=== PATIENT | male | born 1950 | race Caucasian/White ===

== ENCOUNTER 2020-02-29 10:22 | Outpatient (CLI) | payer MEDICARE, SELFPAY ==
--- NOTE | ~2020-02-29 | XR_ITS ---
XR lumbar spine min 4V DATE: 02/29/2020 10:43 INDICATION: Low back pain, pain radiating down leg TECHNIQUE: AP, lateral, bilateral oblique views, coned lateral lumbosacral view COMPARISON: None FINDINGS: There is mild levoscoliosis of the lumbar spine. There is moderate degenerative disease throughout the lumbar and lumbosacral spine. There is associat ed mild retrolisthesis at L4-5. No fracture or bone destruction or anterolisthesis is evident. The lumbar pedicles are intact. No par s intra-articular is defect is evident. The sacroiliac joints are intact. IMPRESSION: Mild levoscoliosis and multilevel moderate degenerative disc disease Reviewed, dictated and finalized at location A. IMPRESSION: Mild levoscoliosis and multilevel moderate degenerative disc diseas e
== END 2020-02-29 10:23 | disposition home or self-care (01) ==
PROVIDERS: PCP Nurse Practitioner; Visit Provider Nurse Practitioner
DX: M54.5 Low back pain (principal); M41.86 Other forms of scoliosis, lumbar region; M51.36 Other intervertebral disc degeneration, lumbar region
CPT/HCPCS: 72110

== ENCOUNTER 2021-04-21 09:09 | Outpatient (CLI) | payer MEDICARE, SELFPAY ==
[2021-04-21 09:47] LABS: Cholesterol 228 mg/dL (0-200); Triglycerides 68 mg/dL (<150)
[2021-04-21 09:51] LABS: LDL Cholesterol Direct 55 mg/dL
[2021-04-21 10:12] LABS: Prostate Specific Antigen 0.3 ng/mL (< OR = 4.0)
[2021-04-21 10:18] LABS: Vitamin D 25 Hydroxy 29.2 ng/mL
[2021-04-21 10:33] LABS: HDL Direct 151 mg/dL
== END 2021-04-21 09:10 | disposition home or self-care (01) ==
LOC: ANHLAB 09:14
PROVIDERS: PCP Nurse Practitioner; Visit Provider Nurse Practitioner
DX: E53.8 Deficiency of other specified B group vitamins (principal); E55.9 Vitamin D deficiency, unspecified; Z13.6 Encounter for screening for cardiovascular disorders; Z12.5 Encounter for screening for malignant neoplasm of prostate
CPT/HCPCS: 36415; 80061; 82306; 82607; 84153; G0103

== ENCOUNTER → 2022-04-14 08:29 | Outpatient (CLI) | payer MEDICARE, SELFPAY ==
--- NOTE | ~2022-04-14 | MR_ITS ---
EXAMINATION: MR brain/brain stem wo con DATE: 04/14/2022 09:02 INDICATION: Numbness and tingling. History of esophageal and prostate cancer. TECHNIQUE: Magnetic resonance imaging (MRI) of the brain and brainstem was performed without intraven ous contrast. Sequences included sagittal and axial T1-weighted SE, axial diffusion-weighted FS SE, a xial T2*-weighted GRE, axial T2-weighted FLAIR Propeller, and axial T2-weighted Propeller. Apparent d iffusion coefficient (ADC) maps were created. COMPARISON: No prior studies for comparison. . FINDINGS: There is a heterogeneous area of abnormal signal intensity in the left parietal lobe with m ild surrounding vasogenic edema, suspicious for underlying mass. There is associated diffusion restri ction. No evidence for associated hemorrhage. No ventriculomegaly or midline shift. No ventriculomega ly or midline shift. Midline sagittal images demonstrate a normal corpus callosum and craniovertebral junction. No abnormality of the sella turcica is seen. Mild generalized atrophy. There are scattered mild periventricular and subcortical white matter changes, most likely related to small vessel ische nathanael disease (microangiopathy). Structures of the posterior fossa including 7/8th cranial nerve comple x are unremarkable. Paranasal sinuses are unremarkable. Orbits are symmetric without disconjugate gaz e. IMPRESSION: 1. Probable small ill-defined left parietal lobe mass near the vertex with mild surrounding vasogenic edema. Recommend follow-up examination with contrast enhancement to assess the extent of enhancement and to exclude other subtly enhancing lesions of the brain. Given the history of malignancy, metasta tic disease should be considered. Reviewed, dictated and finalized at location A. IMPRESSION: 1. Probable small ill-defined left parietal lobe mass near the vertex with mild surrounding vasogenic edema. Recommend follow-up examination with contrast enh ancement to assess the extent of enhancement and to exclude other subtly enhanc ing lesions of the brain. Given the history of malignancy, metastatic disease s hould be considered.
== END ==
PROVIDERS: PCP Family Medicine; Visit Provider Nurse Practitioner
DX: R25.9 Unspecified abnormal involuntary movements (principal); R20.2 Paresthesia of skin; R93.0 Abnormal findings on diagnostic imaging of skull and head, not elsewhere classified
CPT/HCPCS: 70551

== ENCOUNTER → 2022-04-27 12:09 | Outpatient (CLI) | payer MEDICARE, SELFPAY ==
--- NOTE | ~2022-04-27 | MR_ITS ---
EXAMINATION: MR brain/brain stem w con DATE: 04/27/2022 12:46 INDICATION: Mass in left parietal lobe. TECHNIQUE: Magnetic resonance imaging (MRI) of the brain and brainstem was performed with 18 mL Multi Arie intravenous contrast. COMPARISON: brain MRI 04/14/2022 FINDINGS: There is a 2.0 cm enhancing mass in left frontoparietal region. The ventricles are normal i n size. The mastoid air cells are normal. The paranasal sinuses are clear. There are likely changes o f ocular lens replacement surgeries. IMPRESSION: 1. 2.0 cm enhancing mass in left frontoparietal region, consistent with metastatic disease. Reviewed, dictated and finalized at location A. IMPRESSION: 1. 2.0 cm enhancing mass in left frontoparietal region, consistent with metasta tic disease.
[2022-04-27 12:30] LABS: Estimated Glomerular Filt Rate > 60
== END ==
PROVIDERS: PCP Family Medicine; Visit Provider Nurse Practitioner
DX: G93.89 Other specified disorders of brain (principal)
CPT/HCPCS: 70552; A9577

== ENCOUNTER 2022-07-05 08:10 | Outpatient (CLI) | payer MEDICARE, SELFPAY ==
[2022-07-05 21:42] LABS: Prostate Specific Antigen 0.3 ng/mL (< OR = 4.0)
[2022-07-06 12:42] LABS: Cholesterol 196 mg/dL (0-200); HDL Direct 109 mg/dL; Triglycerides 59 mg/dL (<150)
[2022-07-06 12:50] LABS: LDL Cholesterol Direct 70 mg/dL
== END 2022-07-05 08:11 | disposition home or self-care (01) ==
LOC: ANHGOSHLAB 08:13
PROVIDERS: PCP Family Medicine; Visit Provider Nurse Practitioner
DX: Z12.5 Encounter for screening for malignant neoplasm of prostate (principal); Z13.220 Encounter for screening for lipoid disorders
CPT/HCPCS: 36415; 80061; 84153; G0103

== ENCOUNTER 2022-12-06 11:44 | Outpatient (CLI) | payer MEDICARE, SELFPAY ==
--- NOTE | ~2022-12-06 | XR_ITS ---
XR chest 2V 12/06/2022 12:07 Indication: Shortness of breath. Covid. Procedure: 2 view chest Comparison: No prior studies for comparison. Findings: There is patchy bilateral airspace disease, most confluent in the right upper lobe, consist ent with pneumonia. Small pleural effusions. Central venous catheter tip in the SVC. There are surgic al changes of the mediastinum. No pneumothorax. Impression: 1: Extensive patchy bilateral airspace disease, compatible with pneumonia. 2: Small pleural effusions. Reviewed, dictated and finalized at location B. ING ALLEY ATTENDANT Impression: 1: Extensive patchy bilateral airspace disease, compatible with pneumonia. 2: Small pleural effusions.
== END 2022-12-06 11:45 | disposition home or self-care (01) ==
PROVIDERS: PCP Family Medicine; Visit Provider Nurse Practitioner
DX: U07.1 COVID-19 (principal); R06.02 Shortness of breath; R91.8 Other nonspecific abnormal finding of lung field; J90 Pleural effusion, not elsewhere classified
CPT/HCPCS: 71046

== ENCOUNTER 2022-12-13 10:19 | Inpatient (IN) | payer MEDICARE, SELFPAY ==
[2022-12-13] VITALS (12 sets, daily range): BP systolic 104–127; BP diastolic 67–77; PULSE 71–97; RESP 13–20; TEMP 36.3–37.7; O2SAT 89–99; BMI 25.7
--- NOTE | ~2022-12-13 | XR_ITS ---
XR chest 1V portable 12/13/2022 11:01 Indication: Shortness of breath. Esophageal carcinoma. Procedure: AP portable chest Comparison: 12/06/2022 Findings: Portacatheter tip in the SVC. Stable cardiomediastinal silhouette. There is bilateral patch y airspace disease, consistent with pneumonia, improved on the right and worsened on the left. No sig nificant effusion. No pneumothorax. No acute osseous abnormality. Impression: 1: Patchy bilateral airspace disease, compatible with pneumonia. Reviewed, dictated and finalized at location B. SCREENER Impression: 1: Patchy bilateral airspace disease, compatible with pneumonia.
--- NOTE | ~2022-12-13 | CT_ITS ---
Clinical Indication: Shortness of breath, hypoxia CT Scan of the Chest with Contrast: Technique: Contiguous sections were acquired throughout the chest after intravenous administration of 100 cc of Omnipaque 350. Dose reduction technique was used on this scan by utilizing automated expos ure control and iterative reconstruction technique. The dose-length product (DLP) was 351.31 mGy-cm. COMPARISON: 06/19/2015 Findings: There is right paratracheal and left paratracheal lymphadenopathy, largest node along the right parat tonja region measuring 3.7 x 3.3 cm in size. Additional probable mildly enlarged AP window lymph no de present.. There is no filling defect in the pulmonary arterial tree to suggest pulmonary embolus. There is no evidence of aortic dissection or aneurysm. No pericardial effusion. Findings suggestive o f prior esophagectomy and partial gastric pull-through. Minimal bilateral pleural effusions are present. There is a probable irregular mass lesion at the right hilar region, extending predominantly into the central right upper lobe, but also probably into the central, superior right middle lobe. There is e xtension into the right hilum/mediastinum, as well as endobronchial extension into the bronchus inter medius and right upper lobe bronchus. Mass overall probably measures approximately 5.3 x 3.8 x 3.7 cm in extent, though precise delineation of the borders the mass is difficult. There is encasement and marked narrowing of the right upper pulmonary artery. There is extensive patchy consolidation throughout the remainder of the lungs are otherwise, worst in the left lower lobe and lingula. There is also suggestion of several scattered subcentimeter pulmona ry nodules, predominantly in the right upper lobe. Images through the upper abdomen reveal no abnormalities. Impression: No evidence of pulmonary embolus, aortic dissection, or aortic aneurysm. Probable 5.3 x 3.8 x 3.7 cm irregular mass extending from the central right upper lobe and to the rig ht hilum and superior, central right middle lobe, highly suspicious for neoplastic lesion, most likel y bronchogenic carcinoma. There is associated endobronchial extension into the bronchus intermedius a nd right upper lobe bronchus, as well as encasement and marked narrowing of the right upper lobar pul monary artery.. Metastatic mediastinal lymphadenopathy, as detailed above. Extensive patchy consolidation throughout both lungs otherwise, left lung worse than right, compatibl e with multifocal extensive pneumonia. Questionable subcentimeter nodules, particularly in the right upper lobe. Small pulmonary metastases cannot be excluded. Minimal bilateral pleural effusions. Findings to suggest prior esophagectomy and gastric pull-through surgery. Correlate with surgical his tory. Reviewed, dictated and finalized at [facility]. S LEAD Impression: No evidence of pulmonary embolus, aortic dissection, or aortic aneurysm. Probable 5.3 x 3.8 x 3.7 cm irregular mass extending from the central right upp er lobe and to the right hilum and superior, central right middle lobe, highly suspicious for neoplastic lesion, most likely bronchogenic carcinoma. There is associated endobronchial extension into the bronchus intermedius and right uppe r lobe bronchus, as well as encasement and marked narrowing of the right upper lobar pulmonary artery.. Metastatic mediastinal lymphadenopathy, as detailed above. Extensive patchy consolidation throughout both lungs otherwise, left lung worse than right, compatible with multifocal extensive pneumonia. Questionable subcentimeter nodules, particularly in the right upper lobe. Small pulmonary metastases cannot be excl
--- NOTE | ~2022-12-13 | US_ITS ---
EXAMINATION: US venous doppler [facility] DATE: 12/13/2022 12:03 INDICATION: Lower limb edema. TECHNIQUE: Grayscale ultrasound images without and with compression and Doppler ultrasound images of the bilateral lower extremity veins were obtained. COMPARISON: None. FINDINGS: The visualized portions of right common femoral vein, profunda (deep) femoral vein, femoral vein, pop liteal vein, peroneal veins, posterior tibial veins, and greater saphenous vein outflow are patent. The visualized portions of left common femoral vein, profunda femoral vein, femoral vein, popliteal v ein, peroneal veins, posterior tibial veins, and greater saphenous vein outflow are patent. IMPRESSION: 1. No deep venous thrombosis. Reviewed, dictated and finalized at location A. OW WORKER
--- NOTE | 2022-12-13 10:32 | ECG_ITS ---
Measurements Intervals [place] Rate: 79 P: 17 MN: 164 QRS: -37 QRSD: 88 T: 19 QT: 379 QTc: 436 Interpretive Statements SINUS RHYTHM LEFT AXIS DEVIATION RSR (QR) IN V1/V2 BORDERLINE ECG NO PREVIOUS ECG AVAILABLE FOR COMPARISON Electronically Signed On 12-13-2022 14:37:19 [employer]UN by Trell Dobbins M.D.
--- NOTE | 2022-12-13 10:48 | ED.SOB ---
HPI - SOB/Dyspnea General Chief Complaint: Shortness of Breath/Dyspnea <Denae Glynn PA-C - Last Filed: 12/13/22 16:13> Stated Complaint: sob, pneumonia <Denae Glynn PA-C - Last Filed: 12/13/22 16:13> Time Seen by Provider: 12/13/22 10:40 <Denae Glynn PA-C - Last Filed: 12/13/22 16:13> Source: patient <KATHRYN Umaña Last Filed: 12/13/22 16:13> Mode of arrival: ambulatory <Denae Glynn PA-C - Last Filed: 12/13/22 16:13> Limitations: no limitations <Denae Glynn PA-C - Last Filed: 12/13/22 16:13> History of Present Illness HPI Narrative: This is a 72-year-old male that presents to the emergency department for worsening shortness of breath noted over the weekend. Reports he tested positive for COVID 2 weeks ago yesterday. He was started on an inhaler, and an antibiotic. Reports after couple of days he did have some improvement in his symptoms. He started to note worsening again last weekend. He has had fevers, cough, and wheezing. Also reports lower extremity edema. Denies chest pain. <Denae Glynn PA-C - Last Filed: 12/13/22 16:13> Related Data Home Medications: Home Medications Medication Instructions Recorded Confirmed cholecalciferol (vitamin D3) 25 25 mcg PO DAILY 01/14/21 12/13/22 mcg (1,000 unit) capsule apixaban 5 mg tablet (Eliquis) 5 mg PO BID 11/29/22 12/13/22 levetiracetam 500 mg tablet 1,000 mg PO Q12H 11/29/22 12/13/22 (Keppra) mecobalamin (vitamin B12) 1,000 2,000 mcg PO DAILY 11/29/22 12/13/22 mcg chewable tablet pantoprazole 40 mg tablet,delayed 40 mg PO DAILY 11/29/22 12/13/22 release ramelteon 8 mg tablet (Rozerem) 8 mg PO QHS 11/29/22 12/13/22 sertraline 50 mg tablet (Zoloft) 50 mg PO QHS 11/29/22 12/13/22 tiotropium bromide 2.5 2 puff inhalation DAILY 11/29/22 12/13/22 mcg/actuation mist for inhalation (Spiriva Respimat) trazodone 100 mg tablet 100 mg PO QHS 11/29/22 12/13/22 vitamins A,C,X-wzht-[id number] 2,148 1 tablet PO ONCE 11/29/22 12/13/22 mcg-113 mg-45 mg-17.4 mg tablet <Denae Glynn PA-C - Last Filed: 12/13/22 16:13> Allergies/Adverse Reactions: Allergies Allergy/AdvReac Type Severity Reaction Status Date / Time No Known Allergies Allergy Unknown Verified 12/13/22 10:38 <Denae Glynn PA-C - Last Filed: 12/13/22 16:13> Review of Systems Review of Systems: CONSTITUTIONAL: Reports fever ENT: Reports rhinorrhea, congestion CARDIOVASCULAR: Reports edema. Denies chest pain RESPIRATORY: Reports cough and dyspnea. <Denae Glynn PA-C - Last Filed: 12/13/22 16:13> All systems reviewed & are unremarkable except as noted in HPI and below <Denae Glynn PA-C - Last Filed: 12/13/22 16:13> [facility] Past Medical History Medical History: Medical History Brain cancer (~2021) Esophageal cancer (~2018) History of prostate cancer Other and unspecified hyperlipidemia Peripheral polyneuropathy <Denae Glynn PA-C - Last Filed: 12/13/22 16:13> Surgical History Surgical History: Surgical History History of esophagectomy (~10/2015) S/P eye surgery (~02/2022) <Denae Glynn PA-C - Last Filed: 12/13/22 16:13> Family History Family History: Family History Father Family history of arthritis Malignant neoplasm of prostate Family history of congestive heart failure Mother Family history of arthritis Family history of malignant neoplasm of breast in first degree relative <Denae Glynn PA-C - Last Filed: 12/13/22 16:13> Social History Social History: Social History Smoking packs per day: 1.5 Smoking cigarettes per day: 30.0 Years smoked: 30 Smoking pack-years: 45.00 Smoking status: Former smoker Tobacco type: cigarettes
[2022-12-13 11:04] LABS: Basophils Absolute Auto 0.1 K/mm3 (0.0-0.1); Basophils Percent Auto 0.9 % (0.2-1.2); Eosinophils Percent Auto 0.2 % (0-4.4); Hematocrit 35.2 % (42.0-52.0); Hemoglobin 11.8 g/dL (14.0-18.0); Immature Granulocyte Absolute 0.25 K/mm3 (0.00-0.031); Immature Granulocyte Percent A 2.5 % (0-0.5); Lymphocytes Absolute Auto 0.78 K/mm3 (0.9-3.2); Lymphocytes Percent Auto 7.8 % (18.3-44.2); Mean Corpuscular HGB Conc 33.5 g/dl (32-36); Mean Corpuscular Hemoglobin 30.8 pg (26-34); Mean Corpuscular Volume 91.9 fl (80-100); Mean Platelet Volume 8.3 fl (7.4-10.4); Monocytes Percent Auto 19.7 % (2.6-8.5); Neutrophils Absolute Auto 6.9 K/mm3 (1.3-6.7); Neutrophils Percent Auto 68.9 % (45.5-73.1); Platelet Count Result 570 k/mm3 (150-375); Red Blood Count 3.83 M/mm3 (4.6-6.20); Red Cell Distribution Width 18.2 % (11.5-14.5)
[2022-12-13 11:12] LABS: Alanine Aminotransferase 15 U/L (6-50); Albumin Level 3.1 g/dL (3.5-5.1); Alkaline Phosphatase 61 U/L (38-126); Anion Gap 2 mmol/L (8-16); Aspartate Amino Transferase 18 U/L (17-59); Bilirubin,Total 0.5 mg/dL (0.2-1.3); Blood Urea Nitrogen 12 mg/dL (9-20); Carbon Dioxide 31 mmol/L (22-30); Chloride 95 mmol/L (98-107); Estimated CRCL calculation 119 ml/min; Estimated Glomerular Filt Rate > 60; Glucose 101 mg/dL (65-110); Potassium 3.5 mmol/L (3.4-5.0); Sodium 128 mmol/L (137-145)
[2022-12-13 11:19] LABS: NT Pro B Type Natriuretic Pept 604 pg/mL (19.9-100)
[2022-12-13 11:20] LABS: INR 1.3; Prothrombin Time 15.8 Seconds (11.1-14.7)
[2022-12-13 11:21] LABS: Partial Thromboplastin Time 28.7 SECONDS (22.3-36.8)
[2022-12-13 11:35] LABS: Influenza A QL RT-PCR Negative (Negative); Influenza B QL RT-PCR Negative (Negative); SARS-CoV-2 RNA PCR Positive
[2022-12-13] MEDS: IPRATROPIUM BR 0.02% INH SOLN 0.5 MG/2.5 ML VIAL INHALATION ×2 (12:07→20:47)
[2022-12-13] MEDS: ALBUTEROL SULFATE NEB 2.5 MG/3 ML INH INHALATION ×2 (12:07→20:47)
--- NOTE | 2022-12-13 13:06 | PC.NURSE ---
This RN called dietary and ordered lunch tray for pt at this time.
[2022-12-13] MEDS: SODIUM CHLORIDE 0.9% IV 500 ML 999 ML IV CONT (13:48)
--- NOTE | 2022-12-13 15:21 | ADMGEN ---
This patient, Aravind Coleman, was admitted to 3 [facility] Surg Room 303-01at [id number]. Patient/family oriented to hospital policies and general routines including ID bracelet, bed and alarms, visiting hours, pain management, procedures, bathroom and other care routines, personal items, smoking policy, room service/diet, and visiting hours. Information on how to activate the Rapid Response Team has been discussed. Patient/Family are encouraged to report perceived risks to care and to ask questions if they do not understand what they are told or what they should do.
--- NOTE | 2022-12-13 16:02 | PM.IMHP ---
H&P: HPI History of Present Illness Date/Time: 12/13/22 16:02 Chief Complaint: shortness of breath Narrative: This is a 72-year-old male that presents to the emergency department for worsening shortness of breath noted over the weekend. was recently diagnosed with the COVID 2 weeks ago and was treated with antibiotics and steroid. He states that he has been diagnosed with cancer for many years more recently in his lungs and was treated with immunotherapy following which he had pneumonitis was treated with steroid. He has not been on treatment since then. He reports having cough and fever and wheezing. He was getting short of breath with ambulation more more over the past weekend and hence came to the ER for evaluation. In the ER he was hypoxic in mid 80s and was placed on oxygen via nasal cannula. He feels better otherwise remains afebrile is labs were reviewed and also the CT scan of the chest. He also has chronic lower extremity swelling Review of Systems Review of Systems: - CONSTITUTIONAL: Denies weight loss, reports fever and chills. - HEENT: Denies changes in vision and hearing - RESPIRATORY: reports SOB and cough. - CV: Denies palpitations and CP. - GI: Denies abdominal pain, nausea, vomiting and diarrhea. - : Denies dysuria and urinary frequency. - MSK: Denies myalgia and joint pain. - SKIN: Denies rash and pruritus. - NEUROLOGICAL: Denies headache and syncope. - PSYCHIATRIC: Denies recent changes in mood. Denies anxiety and depression. [facility] Past Medical History Medical History Brain cancer (~2021) Esophageal cancer (~2018) History of prostate cancer Other and unspecified hyperlipidemia Peripheral polyneuropathy Surgical History Surgical History History of esophagectomy (~10/2015) S/P eye surgery (~02/2022) Family History Family History Father Family history of arthritis Malignant neoplasm of prostate Family history of congestive heart failure Mother Family history of arthritis Family history of malignant neoplasm of breast in first degree relative Social History Social History Smoking packs per day: 1.5 Smoking cigarettes per day: 30.0 Years smoked: 30 Smoking pack-years: 45.00 Smoking status: Former smoker Tobacco type: cigarettes Smoking end date: 10/17/13 Alcohol intake: current Drinks per week: 14 Substance use: never Substance use type: does not use Lack of Transportation: No Lack of Food: Never True Current Housing: I Have Housing Concerned About Future Housing: No Difficulty Paying Gas/Electric Bills: No Difficulty Paying for Meds: No Currently Unemployed: No Education: Master's Degree or Higher Difficulty w/ Childcare or Family Care: No Living arrangements: alone Occupation/Education: retired Gender identity (if verbalized by the patient): Male Spiritual care concerns: No Agree to blood products: Yes Meds Home Medications and Allergies Home Medications Medication Instructions Recorded Confirmed Type cholecalciferol (vitamin D3) 25 25 mcg PO DAILY 01/14/21 12/13/22 History mcg (1,000 unit) capsule lisinopril 2.5 mg tablet 2.5 mg PO DAILY #90 tabs 11/22/22 12/13/22 Rx albuterol sulfate 90 mcg/actuation 1 inh inhalation Q4H PRN shortness 11/29/22 12/13/22 Rx aerosol inhaler of breath or wheezing #6.7 grams apixaban 5 mg tablet (Eliquis) 5 mg PO BID 11/29/22 12/13/22 History benzonatate 200 mg capsule 200 mg PO TID PRN cough #30 caps 11/29/22 12/13/22 Rx cetirizine 10 mg tablet (Zyrtec) 10 mg PO DAILY #30 tabs 11/29/22 12/13/22 Rx levetiracetam 500 mg tablet 1,000 mg PO Q12H 11/29/22 12/13/22 History (Keppra) mecobalamin (vitamin B12) 1,000 2,000 mcg PO DAILY 11/29/22 12/13/22 History mcg ch
[2022-12-13] MEDS: APIXABAN 5 MG TABLET PO (17:52)
[2022-12-13] MEDS: FUROSEMIDE INJ 40 MG/4 ML VIAL 20 MG IV PUSH (18:51)
[2022-12-13] MEDS: SERTRALINE HCL 50 MG TABLET PO (21:06)
[2022-12-13] MEDS: CEFEPIME 2 GM/NS 50 ML 2 GM/50 ML BAG IVPB (21:06)
[2022-12-13] MEDS: levETIRAcetam 500 MG TABLET 1000 MG PO (21:06)
[2022-12-13] MEDS: traZODone HCL 50 MG TABLET 100 MG PO (21:06)
[2022-12-13] MEDS: CENTRAL LINE FLUSH 10 ML IV PUSH (21:07)
[2022-12-14] VITALS (12 sets, daily range): BP systolic 102–128; BP diastolic 52–69; PULSE 51–85; RESP 16–20; TEMP 36.2–36.4; O2SAT 90–94
[2022-12-14] MEDS: ALBUTEROL SULFATE NEB 2.5 MG/3 ML INH INHALATION ×4 (02:35→19:51)
[2022-12-14] MEDS: IPRATROPIUM BR 0.02% INH SOLN 0.5 MG/2.5 ML VIAL INHALATION ×4 (02:36→19:51)
[2022-12-14 05:37] LABS: Basophils Percent Auto 0.1 % (0.2-1.2); Hematocrit 33.5 % (42.0-52.0); Hemoglobin 11.3 g/dL (14.0-18.0); Immature Granulocyte Absolute 0.09 K/mm3 (0.00-0.031); Immature Granulocyte Percent A 1.1 % (0-0.5); Mean Corpuscular HGB Conc 33.7 g/dl (32-36); Mean Corpuscular Hemoglobin 30.7 pg (26-34); Mean Platelet Volume 8.4 fl (7.4-10.4); Monocytes Absolute Auto 0.9 K/mm3 (0.1-0.6); Monocytes Percent Auto 10.9 % (2.6-8.5); Neutrophils Absolute Auto 6.6 K/mm3 (1.3-6.7); Neutrophils Percent Auto 82.9 % (45.5-73.1); Platelet Count Result 554 k/mm3 (150-375); Red Blood Count 3.68 M/mm3 (4.6-6.20); Red Cell Distribution Width 17.5 % (11.5-14.5)
[2022-12-14] MEDS: CEFEPIME 2 GM/NS 50 ML 2 GM/50 ML BAG IVPB ×3 (05:37→20:56)
[2022-12-14] MEDS: CENTRAL LINE FLUSH 10 ML IV PUSH ×3 (05:38→20:57)
[2022-12-14 05:48] LABS: Alanine Aminotransferase 15 U/L (6-50); Albumin Level 3.2 g/dL (3.5-5.1); Alkaline Phosphatase 57 U/L (38-126); Anion Gap 4 mmol/L (8-16); Aspartate Amino Transferase 19 U/L (17-59); Bilirubin,Total 0.3 mg/dL (0.2-1.3); Blood Urea Nitrogen 11 mg/dL (9-20); Calcium 8.4 mg/dL (8.4-10.2); Carbon Dioxide 31 mmol/L (22-30); Chloride 97 mmol/L (98-107); Estimated CRCL calculation 144 ml/min; Estimated Glomerular Filt Rate > 60; Glucose 142 mg/dL (65-110); Magnesium 1.9 mg/dL (1.6-2.3); Potassium 3.5 mmol/L (3.4-5.0); Sodium 132 mmol/L (137-145)
[2022-12-14] MEDS: UMECLIDINIUM BROMIDE 62.5 MCG ELLIPTA 1 PUFF INHALATION (07:00)
[2022-12-14] MEDS: levETIRAcetam 500 MG TABLET 1000 MG PO ×2 (09:02→20:03)
[2022-12-14] MEDS: OPTI-GEN TAB 1 TABLET PO ×2 (09:02→18:10)
[2022-12-14] MEDS: APIXABAN 5 MG TABLET PO ×2 (09:02→18:10)
[2022-12-14] MEDS: CYANOCOBALAMIN 1,000 MCG TABLET 2000 MCG PO (09:03)
[2022-12-14] MEDS: PANTOPRAZOLE 40 MG TABLET PO (09:04)
[2022-12-14] MEDS: CHOLECALCIFEROL 1,000 UNITS TABLET 1000 UNITS PO (09:04)
[2022-12-14] MEDS: lisinopriL 2.5 MG TABLET PO (09:04)
[2022-12-14] MEDS: LORATADINE 10 MG TABLET PO (09:04)
--- NOTE | 2022-12-14 15:22 | PM.IMPN ---
Progress Note: A&P Assessment and Plan (1) COVID-19: Code(s): U07.1 - COVID-19 Status: Acute (2) Pneumonia: Qualifiers: Laterality: bilateral Lung location: unspecified part of lung Pneumonia type: due to unspecified organism Qualified Code(s): J18.9 - Pneumonia, unspecified organism Code(s): J18.9 - Pneumonia, unspecified organism Status: Acute (3) Acute respiratory failure with hypoxia: Code(s): J96.01 - Acute respiratory failure with hypoxia Status: Acute (4) Hyponatremia: Code(s): E87.1 - Hypo-osmolality and hyponatremia Status: Acute Plan 72-year-old male worsening shortness of breath. Diagnosed COVID 2 weeks ago # Acute hypoxic respiratory failure likely due to recent COVID and pneumonia. Chest x-ray with bilateral patchy airspace disease consistent with pneumonia. Exacerbation currently on nasal cannula oxygen supplementation. CTA negative for PE positive for COVID D-dimer mildly elevated at 0.7. BNP 604. Venous duplex lower extremity negative for DVT. CT finding consistent with COVID pneumonia. Empirically on antibiotics which should be tapered off if cultures remain negative. WBC count has been normal # acute COVID infection out of the window for remdesivir. Will initiate DecadronWhich should be continued for 10 days total # hyponatremia Mild continue to monitorStable today # multifocal pneumonia: CT evidence of probable 5 3 x 3.8 x 3.8 cm irregular mass extending the central right right superior central right highly suspicious for neoplastic lesion most likely associated endobronchial extension the bronchus intermedius and right lobe bronchus as well encasement marked narrowing of right artery. Metastatic mediastinal lymphadenopathy noted with minimal bilateral pleural effusion. Extensive patchy consolidation throughout both lungs compatible with multifocal extensive pneumonia. Check Legionella pneumococcal mycoplasma. Ceftriaxone and azithromycin add vancomycin. will also switch to cefepime. History of right upper lobe intermittent bronchial mass with right hilar and right and left paratracheal lymphadenopathy endobronchial lung cancer On broad-spectrum antibiotics however if the cultures are negative should be tapered off. Likely in a.m. Pneumonia findings on CT consistent with COVID pneumonia Will start small dose of Lasix 40 mg daily for lower extremity edema and possible congestion . Not on long-term Lasix treatment at home # history of tobacco abuse # history of PE initials diagnosed December 2019 was treated with anticoagulation,new PE on 09/07 started on Eliquis and remains on Eliquis # seizure disorder post gamma knife surgery on Keppra # history of brain cancer 2021 follow-up brain MRI with interval near resolution of the previously seen lesion at the left central sulcus with a small focus of residual linear enhancement # history of esophageal cancer 2019 status post neoadjuvant chemoradiation followed by esophagectomy # COPD #Chronic back pain sees Pain Management and epidural in the past # lower extremity edema: Venous duplex negative will give a dose of Lasix. Start oral Lasix from a.m. watch lower leg swelling may not need long-term Lasix treatment. 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 On 04/2022 increased in mass status post gamma knife to left parietal metastasis on 05/26/2022. Bronchoscopy on 09/07 showed poorly differentiated squamous cell carcinoma # prostate cancer # hypertension # hyperlipidemia # peripheral neuropathy # code status full code # DVT prophylaxis on apixaban Subjective Date/time seen: 12/14/22 15:22 Interval history: Feeling better. Leg swelling has improved. Cough with some wh
[2022-12-14] MEDS: traZODone HCL 50 MG TABLET 100 MG PO (20:03)
[2022-12-14] MEDS: SERTRALINE HCL 50 MG TABLET PO (20:03)
[2022-12-15] VITALS (13 sets, daily range): BP systolic 116–133; BP diastolic 71; PULSE 66–98; RESP 18–20; TEMP 36.2–36.8; O2SAT 91–97
[2022-12-15] MEDS: IPRATROPIUM BR 0.02% INH SOLN 0.5 MG/2.5 ML VIAL INHALATION ×4 (01:40→19:25)
[2022-12-15] MEDS: ALBUTEROL SULFATE NEB 2.5 MG/3 ML INH INHALATION ×4 (01:40→19:25)
[2022-12-15] MEDS: CENTRAL LINE FLUSH 10 ML IV PUSH ×3 (05:05→20:41)
[2022-12-15] MEDS: CEFEPIME 2 GM/NS 50 ML 2 GM/50 ML BAG IVPB ×2 (05:05→14:30)
[2022-12-15 06:24] LABS: Alanine Aminotransferase 17 U/L (6-50); Albumin Level 3.4 g/dL (3.5-5.1); Alkaline Phosphatase 52 U/L (38-126); Anion Gap 2 mmol/L (8-16); Aspartate Amino Transferase 17 U/L (17-59); Bilirubin,Total 0.4 mg/dL (0.2-1.3); Blood Urea Nitrogen 11 mg/dL (9-20); Calcium 8.7 mg/dL (8.4-10.2); Carbon Dioxide 32 mmol/L (22-30); Chloride 99 mmol/L (98-107); Estimated CRCL calculation 119 ml/min; Estimated Glomerular Filt Rate > 60; Glucose 103 mg/dL (65-110); Magnesium 2.1 mg/dL (1.6-2.3); Potassium 3.4 mmol/L (3.4-5.0); Sodium 133 mmol/L (137-145)
[2022-12-15 06:32] LABS: Basophils Percent Auto 0.2 % (0.2-1.2); Eosinophils Percent Auto 0.1 % (0-4.4); Hematocrit 35.5 % (42.0-52.0); Hemoglobin 11.7 g/dL (14.0-18.0); Immature Granulocyte Absolute 0.12 K/mm3 (0.00-0.031); Immature Granulocyte Percent A 1.2 % (0-0.5); Lymphocytes Absolute Auto 0.78 K/mm3 (0.9-3.2); Lymphocytes Percent Auto 7.7 % (18.3-44.2); Mean Corpuscular Hemoglobin 30.7 pg (26-34); Mean Corpuscular Volume 93.2 fl (80-100); Mean Platelet Volume 8.7 fl (7.4-10.4); Monocytes Absolute Auto 1.6 K/mm3 (0.1-0.6); Monocytes Percent Auto 15.4 % (2.6-8.5); Neutrophils Absolute Auto 7.6 K/mm3 (1.3-6.7); Neutrophils Percent Auto 75.4 % (45.5-73.1); Platelet Count Result 529 k/mm3 (150-375); Red Blood Count 3.81 M/mm3 (4.6-6.20); Red Cell Distribution Width 18.1 % (11.5-14.5); White Blood Count 10.1 K/mm3 (4.5-10.0)
[2022-12-15 06:58] LABS: Vancomycin Trough 13.5 ug/mL (10.0-20.0)
[2022-12-15] MEDS: UMECLIDINIUM BROMIDE 62.5 MCG ELLIPTA 1 PUFF INHALATION (08:03)
[2022-12-15] MEDS: levETIRAcetam 500 MG TABLET 1000 MG PO ×2 (09:03→20:40)
[2022-12-15] MEDS: FUROSEMIDE 40 MG TABLET PO (09:03)
[2022-12-15] MEDS: APIXABAN 5 MG TABLET PO ×2 (09:03→16:13)
[2022-12-15] MEDS: PANTOPRAZOLE 40 MG TABLET PO (09:03)
[2022-12-15] MEDS: CHOLECALCIFEROL 1,000 UNITS TABLET 1000 UNITS PO (09:04)
[2022-12-15] MEDS: CYANOCOBALAMIN 1,000 MCG TABLET 2000 MCG PO (09:04)
[2022-12-15] MEDS: lisinopriL 2.5 MG TABLET PO (09:04)
[2022-12-15] MEDS: OPTI-GEN TAB 1 TABLET PO ×2 (09:04→16:13)
[2022-12-15] MEDS: LORATADINE 10 MG TABLET PO (09:05)
--- NOTE | 2022-12-15 12:27 | PM.IMPN ---
Progress Note: A&P Assessment and Plan (1) COVID-19: Code(s): U07.1 - COVID-19 Status: Acute (2) Pneumonia: Qualifiers: Laterality: bilateral Lung location: unspecified part of lung Pneumonia type: due to unspecified organism Qualified Code(s): J18.9 - Pneumonia, unspecified organism Code(s): J18.9 - Pneumonia, unspecified organism Status: Acute (3) Acute respiratory failure with hypoxia: Code(s): J96.01 - Acute respiratory failure with hypoxia Status: Acute (4) Esophageal cancer: Onset Date: ~2018 Qualifiers: Malignant neoplasm of esophagus location: unspecified location Qualified Code(s): C15.9 - Malignant neoplasm of esophagus, unspecified Code(s): C15.9 - Malignant neoplasm of esophagus, unspecified Status: Acute Plan 72 years old M with complex PMH of esophageal cancer, brain cancer, recent lung lesions, following with Oncology at [facility] presented with worsening SOB. he was diagnoed with COVID 19 2 days prior to presentation. 1)Acute Hypoxic Resp Failure: Currently not hypoxic, on RA No distress noted C/w Dexamethasone CT chest done on admission shows multiocal PNA,along with probable 5 3 x 3.8 x 3.8 cm irregular mass extending the central right right superior central right highly suspicious for neoplastic lesion most likely associated endobronchial extension the bronchus intermedius and right lobe bronchus as well encasement marked narrowing of right artery. 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 On 04/2022 increased in mass status post gamma knife to left parietal metastasis on 05/26/2022.Bronchoscopy on 09/07 showed poorly differentiated squamous cell carcinoma) c/w bronchodialtor c/w Azitrhomycin, Cefepime, Vancomycin Follow up blood culture Will get pulmonary opinion c/w lasix Supplement potassium 2)H/o Seizure: c/w Keppra 3)HTN:C/w lisinopril 4)H/o PE: c/w eliquis 5)LE Edema: DVT study negative, on lasix 6)Code:Full 7)Dispo:pending improvement Time Spent With Patient Time with patient: 25 - 35 minutes Subjective Date/time seen: 12/15/22 12:27 Interval history: SOB with exertion, stable on RA otherwise while resting Review of Systems Review of Systems: All systems reviewed & are unremarkable except as noted in HPI and below Exam Narrative: GENERAL: Well-appearing, well-nourished, and in no acute distress. HEAD: Normocephalic, atraumatic. EYES: EOMI. ENT: Nares clear, no rhinorrhea or epistaxis. NECK: Supple. No adenopathy or masses. CHEST: No respiratory distress.?? coarse breath sounds bilaterally HEART: Regular rate and rhythm. No murmur heard. Normal peripheral pulses. EXTREMITIES: Normal range of motion.? 1+ pitting edema to the bilateral lower extremities.? Normal DP pulses SKIN: Warm, dry, no rash. NEURO: No focal deficits. Alert and oriented x3. PSYCH: Normal mood and affect Objective Data Vital Signs Vital Signs: Vital Signs - 24 hr 12/14/22 13:00 12/14/22 13:10 12/14/22 13:44 Temperature 97.5 F L Pulse Rate 85 82 51 L Respiratory Rate 18 18 20 Blood Pressure 128/64 Pulse Oximetry 94 Oxygen Delivery 12/14/22 15:41 12/14/22 19:51 12/14/22 20:01 Temperature Pulse Rate 81 84 Respiratory Rate 18 18 Blood Pressure Pulse Oximetry Oxygen Delivery Room Air 12/14/22 20:00 12/14/22 22:00 12/15/22 01:41 Temperature 97.2 F L Pulse Rate 84 75 78 Respiratory Rate 18 18 18 Blood Pressure 102/52 L Pulse Oximetry 94 90 Oxygen Delivery Room Air 12/15/22 01:55 12/15/22 06:00 12/15/22 08:00 Temperature 97.7 F Pulse Rate 80 67 66 Respiratory Rate 18 18 18 Blood Pressure 120/71 Pulse Oximetry 95 Oxygen Delivery 12/15/22 08:04 12/15/22 08:00 Temperature
[2022-12-15] MEDS: traZODone HCL 50 MG TABLET 150 MG PO (20:39)
[2022-12-15] MEDS: SERTRALINE HCL 50 MG TABLET 100 MG PO (20:39)
[2022-12-16] VITALS (11 sets, daily range): BP systolic 96–143; BP diastolic 51–78; PULSE 70–110; RESP 14–19; TEMP 36.2–36.6; O2SAT 92–96
[2022-12-16 03:56] LABS: Pneumococcal Antigen Urine Not Detected (Not Detected)
[2022-12-16] MEDS: CEFEPIME 2 GM/NS 50 ML 2 GM/50 ML BAG IVPB ×3 (06:11→19:51)
[2022-12-16] MEDS: CENTRAL LINE FLUSH 10 ML IV PUSH ×3 (06:13→19:51)
[2022-12-16 06:22] LABS: Basophils Percent Auto 0.5 % (0.2-1.2); Eosinophils Percent Auto 0.1 % (0-4.4); Hematocrit 33.5 % (42.0-52.0); Hemoglobin 11.1 g/dL (14.0-18.0); Immature Granulocyte Absolute 0.14 K/mm3 (0.00-0.031); Immature Granulocyte Percent A 1.7 % (0-0.5); Lymphocytes Absolute Auto 1.07 K/mm3 (0.9-3.2); Lymphocytes Percent Auto 12.9 % (18.3-44.2); Mean Corpuscular HGB Conc 33.1 g/dl (32-36); Mean Corpuscular Hemoglobin 30.1 pg (26-34); Mean Corpuscular Volume 90.8 fl (80-100); Mean Platelet Volume 8.8 fl (7.4-10.4); Monocytes Absolute Auto 1.5 K/mm3 (0.1-0.6); Monocytes Percent Auto 17.9 % (2.6-8.5); Neutrophils Absolute Auto 5.6 K/mm3 (1.3-6.7); Neutrophils Percent Auto 66.9 % (45.5-73.1); Platelet Count Result 504 k/mm3 (150-375); Red Blood Count 3.69 M/mm3 (4.6-6.20); Red Cell Distribution Width 18.3 % (11.5-14.5); White Blood Count 8.3 K/mm3 (4.5-10.0)
[2022-12-16 06:26] LABS: Anion Gap 3 mmol/L (8-16); Blood Urea Nitrogen 11 mg/dL (9-20); Calcium 8.4 mg/dL (8.4-10.2); Carbon Dioxide 32 mmol/L (22-30); Chloride 98 mmol/L (98-107); Estimated CRCL calculation 144 ml/min; Estimated Glomerular Filt Rate > 60; Glucose 96 mg/dL (65-110); Potassium 3.5 mmol/L (3.4-5.0); Sodium 133 mmol/L (137-145)
[2022-12-16] MEDS: IPRATROPIUM BR 0.02% INH SOLN 0.5 MG/2.5 ML VIAL INHALATION ×3 (07:54→20:05)
[2022-12-16] MEDS: ALBUTEROL SULFATE NEB 2.5 MG/3 ML INH INHALATION ×3 (07:55→20:05)
[2022-12-16] MEDS: UMECLIDINIUM BROMIDE 62.5 MCG ELLIPTA 1 PUFF INHALATION (08:03)
[2022-12-16] MEDS: CHOLECALCIFEROL 1,000 UNITS TABLET 1000 UNITS PO (09:51)
[2022-12-16] MEDS: OPTI-GEN TAB 1 TABLET PO ×2 (09:51→17:42)
[2022-12-16] MEDS: BENZONATATE 100 MG CAPSULE 200 MG PO (09:51)
[2022-12-16] MEDS: levETIRAcetam 500 MG TABLET 1000 MG PO ×2 (09:51→19:49)
[2022-12-16] MEDS: CYANOCOBALAMIN 1,000 MCG TABLET 2000 MCG PO (09:51)
[2022-12-16] MEDS: lisinopriL 2.5 MG TABLET PO (09:52)
[2022-12-16] MEDS: LORATADINE 10 MG TABLET PO (09:52)
[2022-12-16] MEDS: APIXABAN 5 MG TABLET PO ×2 (09:52→17:42)
[2022-12-16] MEDS: FUROSEMIDE 40 MG TABLET PO (09:52)
[2022-12-16] MEDS: PANTOPRAZOLE 40 MG TABLET PO (09:52)
--- NOTE | 2022-12-16 12:21 | PM.IMPN ---
Progress Note: A&P Assessment and Plan (1) COVID-19: Code(s): U07.1 - COVID-19 Status: Acute (2) Pneumonia: Qualifiers: Laterality: bilateral Lung location: unspecified part of lung Pneumonia type: due to unspecified organism Qualified Code(s): J18.9 - Pneumonia, unspecified organism Code(s): J18.9 - Pneumonia, unspecified organism Status: Acute (3) Acute respiratory failure with hypoxia: Code(s): J96.01 - Acute respiratory failure with hypoxia Status: Acute (4) Esophageal cancer: Onset Date: ~2018 Qualifiers: Malignant neoplasm of esophagus location: unspecified location Qualified Code(s): C15.9 - Malignant neoplasm of esophagus, unspecified Code(s): C15.9 - Malignant neoplasm of esophagus, unspecified Status: Acute Plan 72 years old M with complex PMH of esophageal cancer, brain cancer, recent lung lesions, following with Oncology at [facility] presented with worsening SOB. he was diagnoed with COVID 19 2 days prior to presentation. 1)Acute Hypoxic Resp Failure: Currently not hypoxic, on RA No distress noted C/w Dexamethasone CT chest done on admission shows multiocal PNA,along with probable 5 3 x 3.8 x 3.8 cm irregular mass extending the central right right superior central right highly suspicious for neoplastic lesion most likely associated endobronchial extension the bronchus intermedius and right lobe bronchus as well encasement marked narrowing of right artery. 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 On 04/2022 increased in mass status post gamma knife to left parietal metastasis on 05/26/2022.Bronchoscopy on 09/07 showed poorly differentiated squamous cell carcinoma) c/w bronchodialtor on Azitrhomycin, Cefepime, discontinue Vancomycin, MRSA screening is an active Follow up blood culture no growth so far, c/w lasix Supplement potassium 2)H/o Seizure: c/w Keppra 3)HTN:C/w lisinopril 4)H/o PE: c/w eliquis 5)LE Edema: DVT study negative, on lasix 6)Code:Full 7)Dispo:pending improvement Subjective Date/time seen: 12/16/22 12:21 Patient feels dyspnea is improving, no new issue even overnight. Patient afebrile, hemodynamically stable, patient denies chest pain Review of Systems Review of Systems: patient feels better today, no new issue events overnight. Patient is afebrile, hemodynamically stable, not on oxygen Exam Narrative: GENERAL: Pleasant, in no acute distress. Well-nourished. - EYES: EOMI. Anicteric. - HENT: Moist mucous membranes. - LUNGS: coarse breath sound bilaterally, no wheezing, rhonchi, or rales. - CARDIOVASCULAR: Regular rate and rhythm. No murmur. No JVD. - ABDOMEN: Soft, non-tender and non-distended. No palpable masses. - EXTREMITIES: No edema. Peripheral pulses 2+. Non-tender. - NEUROLOGIC: No focal neurological deficits. CN II-XII grossly intact. - PSYCHIATRIC: Awake, Alert and oriented x 3. Appropriate mood and affect. - SKIN: No rashes or lesions. Warm. - LYMPH: No cervical lymphadenopathy. Objective Data Vital Signs Vital Signs: Vital Signs - 24 hr 12/15/22 14:00 12/15/22 15:35 12/15/22 15:55 Temperature 98.2 F Pulse Rate 98 78 86 Respiratory Rate 20 18 18 Blood Pressure 133/71 Pulse Oximetry 97 Oxygen Delivery 12/15/22 19:27 12/15/22 19:28 12/15/22 20:44 Temperature Pulse Rate 77 79 Respiratory Rate 18 18 Blood Pressure Pulse Oximetry 91 Oxygen Delivery Room Air 12/15/22 22:00 12/15/22 20:00 12/16/22 06:00 Temperature 97.2 F L 97.1 F L Pulse Rate 73 73 72 Respiratory Rate 18 18 19 Blood Pressure 116/71 143/78 H Pulse Oximetry 95 95 94 Oxygen Delivery Room Air 12/16/22 07:55 12/16/22 07:58 12/16/22 08:03 Temperature Pulse Rate 71 71 70 Respiratory
[2022-12-16 18:46] LABS: Mycoplasma IgM Antibody Titer 101 U/mL (<770)
[2022-12-16] MEDS: SERTRALINE HCL 50 MG TABLET 100 MG PO (19:49)
[2022-12-16] MEDS: traZODone HCL 50 MG TABLET 150 MG PO (19:50)
[2022-12-17] VITALS (9 sets, daily range): BP systolic 104–139; BP diastolic 59–72; PULSE 62–103; RESP 14–20; TEMP 36.1–36.4; O2SAT 94–98
[2022-12-17] MEDS: CENTRAL LINE FLUSH 10 ML IV PUSH ×3 (05:47→20:02)
[2022-12-17] MEDS: CEFEPIME 2 GM/NS 50 ML 2 GM/50 ML BAG IVPB ×3 (05:47→20:01)
[2022-12-17 06:57] LABS: Legionella pneumophila Ag Ur Not Detected (Not Detected)
[2022-12-17] MEDS: IPRATROPIUM BR 0.02% INH SOLN 0.5 MG/2.5 ML VIAL INHALATION ×2 (07:56→20:42)
[2022-12-17] MEDS: ALBUTEROL SULFATE NEB 2.5 MG/3 ML INH INHALATION ×2 (07:56→20:42)
[2022-12-17] MEDS: PANTOPRAZOLE 40 MG TABLET PO (09:27)
[2022-12-17] MEDS: lisinopriL 2.5 MG TABLET PO (09:27)
[2022-12-17] MEDS: APIXABAN 5 MG TABLET PO ×2 (09:27→17:33)
[2022-12-17] MEDS: FUROSEMIDE 40 MG TABLET PO (09:27)
[2022-12-17] MEDS: LORATADINE 10 MG TABLET PO (09:28)
[2022-12-17] MEDS: CHOLECALCIFEROL 1,000 UNITS TABLET 1000 UNITS PO (09:28)
[2022-12-17] MEDS: levETIRAcetam 500 MG TABLET 1000 MG PO ×2 (09:28→18:17)
[2022-12-17] MEDS: OPTI-GEN TAB 1 TABLET PO ×2 (09:28→17:33)
[2022-12-17] MEDS: CYANOCOBALAMIN 1,000 MCG TABLET 2000 MCG PO (09:28)
[2022-12-17] MEDS: ALBUTEROL SULFATE (*SP) AEROSOL 1 PUFF INHALATION (09:54)
--- NOTE | 2022-12-17 10:32 | PM.IMPN ---
Progress Note: A&P Assessment and Plan (1) COVID-19: Code(s): U07.1 - COVID-19 Status: Acute (2) Pneumonia: Qualifiers: Laterality: bilateral Lung location: unspecified part of lung Pneumonia type: due to unspecified organism Qualified Code(s): J18.9 - Pneumonia, unspecified organism Code(s): J18.9 - Pneumonia, unspecified organism Status: Acute (3) Acute respiratory failure with hypoxia: Code(s): J96.01 - Acute respiratory failure with hypoxia Status: Acute (4) Esophageal cancer: Onset Date: ~2018 Qualifiers: Malignant neoplasm of esophagus location: unspecified location Qualified Code(s): C15.9 - Malignant neoplasm of esophagus, unspecified Code(s): C15.9 - Malignant neoplasm of esophagus, unspecified Status: Acute Plan 72 years old M with complex PMH of esophageal cancer, brain cancer, recent lung lesions, following with Oncology at [facility] presented with worsening SOB. he was diagnoed with COVID 19 2 days prior to presentation. 1)Acute Hypoxic Resp Failure: Currently not hypoxic, on RA No distress noted multifocal pneumonia C/w Dexamethasone CT chest done on admission shows multiocal PNA,along with probable 5 3 x 3.8 x 3.8 cm irregular mass extending the central right right superior central right highly suspicious for neoplastic lesion most likely associated endobronchial extension the bronchus intermedius and right lobe bronchus as well encasement marked narrowing of right artery. 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 On 04/2022 increased in mass status post gamma knife to left parietal metastasis on 05/26/2022.Bronchoscopy on 09/07 showed poorly differentiated squamous cell carcinoma) c/w bronchodialtor on Azitrhomycin, Cefepime since 12/14, discontinue Vancomycin, MRSA screening is an active Follow up blood culture no growth so far, c/w lasix Supplement potassium 2)H/o Seizure: c/w Keppra 3)HTN:C/w lisinopril 4)H/o PE: c/w eliquis 5)LE Edema: DVT study negative, on lasix 6)Code:Full 7)Dispo:pending improvement Subjective Date/time seen: 12/17/22 10:32 Interval history: I saw examined patient today. Patient feels better, has cough and wheezing in the morning, no other issue events over the night. Patient is afebrile. Exam Narrative: GENERAL: Pleasant, in no acute distress. Well-nourished. - EYES: EOMI. Anicteric. - HENT: Moist mucous membranes. - LUNGS: coarse breath sound bilaterally, no wheezing, rhonchi, or rales. - CARDIOVASCULAR: Regular rate and rhythm. No murmur. No JVD. - ABDOMEN: Soft, non-tender and non-distended. No palpable masses. - EXTREMITIES: No edema. Peripheral pulses 2+. Non-tender. - NEUROLOGIC: No focal neurological deficits. CN II-XII grossly intact. - PSYCHIATRIC: Awake, Alert and oriented x 3. Appropriate mood and affect. - SKIN: No rashes or lesions. Warm. - LYMPH: No cervical lymphadenopathy. Objective Data Vital Signs Vital Signs: Vital Signs - 24 hr 12/16/22 13:46 12/16/22 14:19 12/16/22 14:28 Temperature 97.9 F Pulse Rate 110 H 95 98 Respiratory Rate 18 16 16 Blood Pressure 121/51 L Pulse Oximetry 94 Oxygen Delivery 12/16/22 20:05 12/16/22 20:12 12/16/22 22:00 Temperature 97.3 F L Pulse Rate 84 86 78 Respiratory Rate 16 16 14 Blood Pressure 96/55 L Pulse Oximetry 96 Oxygen Delivery 12/17/22 06:00 12/17/22 07:57 12/17/22 07:57 Temperature 97.6 F Pulse Rate 62 71 Respiratory Rate 14 16 Blood Pressure 128/67 Pulse Oximetry 96 94 Oxygen Delivery Room Air 12/17/22 08:15 12/17/22 09:34 12/17/22 10:02 Temperature Pulse Rate 77 103 H 80 Respiratory Rate 16 14 20 Blood Pressure 139/72 Pulse Oximetry 98 Oxygen Delivery In
[2022-12-17 12:28] LABS: Glucose Point of Care 117 mg/dl (65-105)
[2022-12-17] MEDS: traZODone HCL 50 MG TABLET 150 MG PO (18:16)
[2022-12-17] MEDS: SERTRALINE HCL 50 MG TABLET 100 MG PO (18:17)
[2022-12-17 18:22] LABS: Glucose Point of Care 232 mg/dl (65-105)
--- NOTE | 2022-12-17 19:00 | PCRCNOTE ---
Window of time for administration has passed. See next scheduled administration.
[2022-12-17] MEDS: INSULIN ASPART (*BKC) 100 UNITS/ML SUB-Q (19:34)
[2022-12-17 20:41] LABS: Glucose Point of Care 113 mg/dl (65-105)
[2022-12-18] MEDS: IPRATROPIUM BR 0.02% INH SOLN 0.5 MG/2.5 ML VIAL INHALATION ×3 (01:51→13:49)
[2022-12-18] MEDS: ALBUTEROL SULFATE NEB 2.5 MG/3 ML INH INHALATION ×3 (01:51→13:49)
[2022-12-18 01:52] VITALS: PULSE 72; RESP 18
[2022-12-18 02:03] VITALS: PULSE 74; RESP 18
[2022-12-18 06:00] VITALS: BP 130/69; PULSE 74; RESP 16; TEMP 36.3; O2SAT 96
[2022-12-18] MEDS: levETIRAcetam 500 MG TABLET 1000 MG PO (06:02)
[2022-12-18] MEDS: CENTRAL LINE FLUSH 10 ML IV PUSH (06:03)
[2022-12-18] MEDS: CEFEPIME 2 GM/NS 50 ML 2 GM/50 ML BAG IVPB (06:03)
[2022-12-18 06:31] LABS: Hematocrit 37.5 % (42.0-52.0); Hemoglobin 12.6 g/dL (14.0-18.0); Mean Corpuscular HGB Conc 33.6 g/dl (32-36); Mean Corpuscular Volume 92.1 fl (80-100); Mean Platelet Volume 8.7 fl (7.4-10.4); Platelet Count Result 462 k/mm3 (150-375); Red Blood Count 4.07 M/mm3 (4.6-6.20); White Blood Count 9.8 K/mm3 (4.5-10.0)
[2022-12-18 06:35] LABS: Anion Gap 6 mmol/L (8-16); Blood Urea Nitrogen 13 mg/dL (9-20); Calcium 8.8 mg/dL (8.4-10.2); Carbon Dioxide 32 mmol/L (22-30); Chloride 99 mmol/L (98-107); Estimated CRCL calculation 144 ml/min; Estimated Glomerular Filt Rate > 60; Glucose 86 mg/dL (65-110); Potassium 3.4 mmol/L (3.4-5.0); Sodium 137 mmol/L (137-145)
[2022-12-18] MEDS: UMECLIDINIUM BROMIDE 62.5 MCG ELLIPTA 1 PUFF INHALATION (07:04)
[2022-12-18 07:09] VITALS: PULSE 75; RESP 18; O2SAT 94
[2022-12-18 07:23] VITALS: PULSE 78; RESP 18
[2022-12-18 07:43] LABS: Glucose Point of Care 78 mg/dl (65-105)
[2022-12-18] MEDS: CYANOCOBALAMIN 1,000 MCG TABLET 2000 MCG PO (08:33)
[2022-12-18] MEDS: CHOLECALCIFEROL 1,000 UNITS TABLET 1000 UNITS PO (08:34)
[2022-12-18] MEDS: LORATADINE 10 MG TABLET PO (08:34)
[2022-12-18] MEDS: APIXABAN 5 MG TABLET PO (08:34)
[2022-12-18] MEDS: lisinopriL 2.5 MG TABLET PO (08:34)
[2022-12-18] MEDS: PANTOPRAZOLE 40 MG TABLET PO (08:34)
[2022-12-18] MEDS: OPTI-GEN TAB 1 TABLET PO (08:35)
--- NOTE | 2022-12-18 10:39 | PM.IMPN ---
Progress Note: A&P Assessment and Plan (1) COVID-19: Code(s): U07.1 - COVID-19 Status: Acute (2) Pneumonia: Qualifiers: Laterality: bilateral Lung location: unspecified part of lung Pneumonia type: due to unspecified organism Qualified Code(s): J18.9 - Pneumonia, unspecified organism Code(s): J18.9 - Pneumonia, unspecified organism Status: Acute (3) Acute respiratory failure with hypoxia: Code(s): J96.01 - Acute respiratory failure with hypoxia Status: Acute (4) Esophageal cancer: Onset Date: ~2018 Qualifiers: Malignant neoplasm of esophagus location: unspecified location Qualified Code(s): C15.9 - Malignant neoplasm of esophagus, unspecified Code(s): C15.9 - Malignant neoplasm of esophagus, unspecified Status: Acute Plan 72 years old M with complex PMH of esophageal cancer, brain cancer, recent lung lesions, following with Oncology at [facility] presented with worsening SOB. he was diagnoed with COVID 19 2 days prior to presentation. 1)Acute Hypoxic Resp Failure: Currently not hypoxic, on RA No distress noted multifocal pneumonia C/w Dexamethasone CT chest done on admission shows multiocal PNA,along with probable 5 3 x 3.8 x 3.8 cm irregular mass extending the central right right superior central right highly suspicious for neoplastic lesion most likely associated endobronchial extension the bronchus intermedius and right lobe bronchus as well encasement marked narrowing of right artery. 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 On 04/2022 increased in mass status post gamma knife to left parietal metastasis on 05/26/2022.Bronchoscopy on 09/07 showed poorly differentiated squamous cell carcinoma) received bronchodialtor on Azitrhomycin, Cefepime since 12/14, discontinue Vancomycin, MRSA screening is an active Follow up blood culture no growth so far, finished abx treatments today c/w lasix Supplement potassium 2)H/o Seizure: c/w Keppra 3)HTN:C/w lisinopril 4)H/o PE: c/w eliquis 5)LE Edema: DVT study negative, on lasix 6)Code:Full 7)Dispo:pending improvement Subjective Date/time seen: 12/18/22 10:39 Interval history: I saw examined patient today. Patient feels better, has no cough and sob in the morning, no other issue events over the night. Patient is afebrile. Exam Narrative: GENERAL: Pleasant, in no acute distress. Well-nourished. - EYES: EOMI. Anicteric. - HENT: Moist mucous membranes. - LUNGS: clear bilaterally, no wheezing, rhonchi, or rales. - CARDIOVASCULAR: Regular rate and rhythm. No murmur. No JVD. - ABDOMEN: Soft, non-tender and non-distended. No palpable masses. - EXTREMITIES: No edema. Peripheral pulses 2+. Non-tender. - NEUROLOGIC: No focal neurological deficits. CN II-XII grossly intact. - PSYCHIATRIC: Awake, Alert and oriented x 3. Appropriate mood and affect. - SKIN: No rashes or lesions. Warm. - LYMPH: No cervical lymphadenopathy. Objective Data Vital Signs Vital Signs: Vital Signs - 24 hr 12/17/22 14:00 12/17/22 20:43 12/17/22 20:54 Temperature 97.2 F L Pulse Rate 94 76 78 Respiratory Rate 20 20 20 Blood Pressure 104/59 L Pulse Oximetry 97 Oxygen Delivery Fraction of Inspired Oxygen 12/17/22 22:00 12/18/22 01:52 12/18/22 02:03 Temperature 97 F L Pulse Rate 74 72 74 Respiratory Rate 16 18 18 Blood Pressure 104/71 Pulse Oximetry 95 Oxygen Delivery Fraction of Inspired Oxygen 12/18/22 06:00 12/18/22 07:09 12/18/22 07:09 Temperature 97.4 F L Pulse Rate 74 75 75 Respiratory Rate 16 18 18 Blood Pressure 130/69 Pulse Oximetry 96 94 Oxygen Delivery Room Air Fraction of Inspired Oxygen 21 12/18/22 07:23 Temperature Pulse Rate 78 Respiratory Rate 18
[2022-12-18 11:22] LABS: Glucose Point of Care 156 mg/dl (65-105)
--- NOTE | 2022-12-18 12:15 | PM.DS ---
DS: Admitting Diagnosis Discharge Date today Admitting Diagnosis multifocal pneumonia, COVID-19 viral infection DS: Discharge Diagnosis Discharge Diagnosis (1) COVID-19: Code(s): U07.1 - COVID-19 Status: Acute (2) Pneumonia: Qualifiers: Laterality: bilateral Lung location: unspecified part of lung Pneumonia type: due to unspecified organism Qualified Code(s): J18.9 - Pneumonia, unspecified organism Code(s): J18.9 - Pneumonia, unspecified organism Status: Acute (3) Acute respiratory failure with hypoxia: Code(s): J96.01 - Acute respiratory failure with hypoxia Status: Acute (4) Esophageal cancer: Onset Date: ~2018 Qualifiers: Malignant neoplasm of esophagus location: unspecified location Qualified Code(s): C15.9 - Malignant neoplasm of esophagus, unspecified Code(s): C15.9 - Malignant neoplasm of esophagus, unspecified Status: Acute Plan 72 years old M with complex PMH of esophageal cancer, brain cancer, recent lung lesions, following with Oncology at [facility] presented with worsening SOB. he was diagnoed with COVID 19 2 days prior to presentation. 1)Acute Hypoxic Resp Failure: Currently not hypoxic, on RA No distress noted multifocal pneumonia C/w Dexamethasone CT chest done on admission shows multiocal PNA,along with probable 5 3 x 3.8 x 3.8 cm irregular mass extending the central right right superior central right highly suspicious for neoplastic lesion most likely associated endobronchial extension the bronchus intermedius and right lobe bronchus as well encasement marked narrowing of right artery. 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 On 04/2022 increased in mass status post gamma knife to left parietal metastasis on 05/26/2022.Bronchoscopy on 09/07 showed poorly differentiated squamous cell carcinoma) received bronchodialtor has been on Azitrhomycin, Cefepime since 12/14, discontinue Vancomycin, MRSA screening is an active Follow up blood culture no growth so far, finished abx treatments today c/w lasix Supplement potassium 2)H/o Seizure: c/w Keppra 3)HTN:C/w lisinopril 4)H/o PE: c/w eliquis 5)LE Edema: DVT study negative, on lasix, resolves t DS: Summary Hospital Course Reason for hospitalization: short of breath Hospital Course: This is a 72-year-old male that presents to the emergency department for worsening shortness of breath noted over the weekend. was recently diagnosed with the COVID 2 weeks ago and was treated with antibiotics and steroid.? He states that he has been diagnosed with cancer? for many years more recently in his lungs and was treated with immunotherapy following which he had pneumonitis was treated with steroid.? He has not been on treatment since then.? He reports having cough and fever and wheezing.? He was getting short of breath with ambulation more more over the past weekend and hence came to the ER for evaluation.? In the ER he was hypoxic in mid 80s and was placed on oxygen via nasal cannula. during hospitalization, patient staffed stenosis multifocal pneumonia, hypoxemia, COVID infection. Patient received abx treatment. now patient feels dyspnea resource, patient is afebrile, hemodynamically stable. Hospital course is uneventful. patient will be discharged home today. Please refer assessment plan for details Time Spent with Patient Time attestation: Total time spent providing and/or coordinating discharge services: Exam Narrative: GENERAL: Pleasant, in no acute distress. Well-nourished. - EYES: EOMI. Anicteric. - HENT: Moist mucous membranes. - LUNGS: clear bilaterally, no wheezing, rhonchi, or rales. - CARDIOVASCULAR: Regular rate and rhythm. No murmur. No JVD. - ABDOMEN: Soft, non
[2022-12-18] MEDS: ALBUTEROL SULFATE (*SP) AEROSOL 1 PUFF INHALATION (13:49)
[2022-12-18 13:51] VITALS: PULSE 91; RESP 18
== END 2022-12-18 14:35 | disposition home or self-care (01) | DRG 177 ==
LOC: ANHED 11:02 → ANH3MEDSUR 13:51
PROVIDERS: Internal Medicine; Preventive Medicine Aerospace Medicine; Admitting Provider Internal Medicine; Emergency Provider Physician Assistant; PCP Nurse Practitioner; Visit Provider Hospitalist
DX: U07.1 COVID-19 (principal); J18.9 Pneumonia, unspecified organism; J96.01 Acute respiratory failure with hypoxia; E87.1 Hypo-osmolality and hyponatremia; J44.0 Chronic obstructive pulmonary disease with (acute) lower respiratory infection; C34.11 Malignant neoplasm of upper lobe, right bronchus or lung; G40.909 Epilepsy, unspecified, not intractable, without status epilepticus; I10 Essential (primary) hypertension; G62.9 Polyneuropathy, unspecified; E78.5 Hyperlipidemia, unspecified; G89.29 Other chronic pain; M54.9 Dorsalgia, unspecified; Z85.01 Personal history of malignant neoplasm of esophagus; Z85.841 Personal history of malignant neoplasm of brain; Z85.46 Personal history of malignant neoplasm of prostate; Z86.711 Personal history of pulmonary embolism; Z87.891 Personal history of nicotine dependence
CPT/HCPCS: 36415; 71045; 71275; 80048; 80053; 80202; 82948; 83735; 83880; 85025; 85027; 85380; 85610; 85730; 86738; 87040; 87081; 87449; 87636; 87899; 93005; 93970; 94640; 96365; 96366; 96367; 96375; 96376; 97161; 97165; 99285; A9270; G0378; J0131; J0456; J0692; J0696; J1100; J1642; J1815; J1940; J3370; J7040; Q9967

== ENCOUNTER 2022-12-20 16:16 | Inpatient (IN) | payer MEDICARE, SELFPAY ==
[2022-12-20] VITALS (12 sets, daily range): BP systolic 92–114; BP diastolic 55–70; PULSE 80–101; RESP 15–22; TEMP 36.9; O2SAT 94–97
--- NOTE | ~2022-12-20 | CT_ITS ---
EXAMINATION:CT diagnostic chest wo con DATE: 12/21/2022 14:28 INDICATION: Esophageal cancer. TECHNIQUE: Computed tomography (CT) of the chest was performed without intravenous contrast. Automate d exposure control and iterative reconstruction technique were employed. The dose-length product (DLP ) was 214.00 mGy-cm. COMPARISON: Chest CT 12/13/2022, chest CT 06/19/2015 FINDINGS: There are patchy airspace and groundglass opacities involving all lobes, left worse than ri ght. There is a mass in the right mainstem bronchus and right upper lobe bronchi and bronchus interme dius. No pleural effusion. The heart size is normal. No pericardial effusion. There is a right automotive internet sales manager al jugular port with tip at superior cavoatrial junction. There are changes of esophagectomy and shaneka jackie pull-through procedure. There is a supraumbilical ventral hernia containing fat. There is mediast inal lymphadenopathy. For example, a right paratracheal node measures 3.6 x 3.3 cm. There is mild tho racic spondylosis. There is a right rib defect from prior thoracotomy. IMPRESSION: 1. Diffuse lung disease with slight improvement, consistent with pneumonia. 2. Right-sided endobronchial mass, consistent with primary bronchogenic carcinoma. 3. Mediastinal lymphadenopathy, consistent with metastatic disease. Reviewed, dictated and finalized at location A. SPRAYER IMPRESSION: 1. Diffuse lung disease with slight improvement, consistent with pneumonia. 2. Right-sided endobronchial mass, consistent with primary bronchogenic carcino ma. 3. Mediastinal lymphadenopathy, consistent with metastatic disease.
--- NOTE | ~2022-12-20 | XR_ITS ---
EXAMINATION: XR chest 2V Exam Date/Time: 12/20/2022 16:50 MARKETING REPORTING ANALYST HISTORY: sob Comparison: 12/13/2022; CTPA 12/13/2022. RESULT: Lines, tubes, and devices: Implanted right chest port terminating at the cavoatrial junction. Multip le mediastinal surgical clips. Lungs and pleura: Worsening patchy airspace disease in the right lower lobe. Persistent, very slight ly improved patchy airspace disease in the right midlung and left mid and lower lung. Cardiomediastinal silhouette: Stable. Right mainstem bronchus/bronchus intermedius mass, unchanged. Other: No acute osseous or upper abdominal finding. IMPRESSION: Multifocal pneumonia, slightly improved in the right mid and left mid/lower lungs, worsening in the r ight lower lung. Stable right endobronchial mass. Right upper lobe/hilar mass and mediastinal lymphad enopathy were better seen in the prior CT. Reviewed, dictated and finalized at location K. ETING REPORTING ANALYST IMPRESSION: Multifocal pneumonia, slightly improved in the right mid and left mid/lower brett gs, worsening in the right lower lung. Stable right endobronchial mass. Right u pper lobe/hilar mass and mediastinal lymphadenopathy were better seen in the pr ior CT.
--- NOTE | ~2022-12-20 | XR_ITS ---
XR chest 1V portable DATE: 12/22/2022 09:12 INDICATION: Shortness of breath 3 weeks post Covid TECHNIQUE: Portable upright AP chest on 12/22/2022 at 0906 hours COMPARISON: 12/21/2022 CT chest 12/20/2022 AP and lateral chest FINDINGS: There are extensive patchy bilateral pulmonary joints are again noted involving particularl y the mid and lower lung zones, left greater than right, consistent with multifocal bilateral pneumon ia. No pleural effusion or pulmonary vascular congestion or pneumothorax. Right Port-A-Cath catheter tip is situated near the superior cavoatrial junction. Normal heart size. Multiple surgical clips in the mediastinum; history of esophageal resection and gastric pull-through procedure. IMPRESSION: Extensive bilateral pulmonary infiltrates likely due to bilateral pneumonia; little inter cece change since 12/20/2022 Reviewed, dictated and finalized at location B. GER OUTREACH IMPRESSION: Extensive bilateral pulmonary infiltrates likely due to bilateral p neumonia; little interval change since 12/20/2022
--- NOTE | ~2022-12-20 | XR_ITS ---
EXAMINATION: XR chest 1V portable DATE: 12/23/2022 09:57 INDICATION: Shortness of breath. TECHNIQUE: A single frontal view of the chest was obtained. COMPARISON: Chest one view 12/22/2022, chest CT 12/21/2022 FINDINGS: There are airspace opacities in right midlung zone. There are airspace opacities in all lef t lung zones with a mid and lower lung zone predominance. There are mild airspace opacities in right lower lung zone. No pleural effusion or pneumothorax. The heart size is normal. There are surgical cl ips from esophagectomy and gastric pull-through procedure. There is a right internal jugular port wit h tip at superior cavoatrial junction. IMPRESSION: 1. Diffuse lung disease with mild worsening on the left, consistent with pneumonia. 2. Stable airspace opacities in right midlung zone, likely a combination of malignancy and postobstru ctive pneumonia. Reviewed, dictated and finalized at location A. ECTOR OUTSIDE STEAM DISTRIBUTION IMPRESSION: 1. Diffuse lung disease with mild worsening on the left, consistent with pneumo jemima. 2. Stable airspace opacities in right midlung zone, likely a combination of mal ignancy and postobstructive pneumonia.
--- NOTE | 2022-12-20 16:41 | ECG_ITS ---
Measurements Intervals [place] Rate: 88 P: 22 NH: 165 QRS: -38 QRSD: 89 T: 25 QT: 363 QTc: 439 Interpretive Statements SINUS RHYTHM ATRIAL PREMATURE COMPLEXES LEFT AXIS DEVIATION INCOMPLETE RIGHT BUNDLE BRANCH BLOCK LOW VOLTAGE- PRECORDIAL LEADS POOR R WAVE PROGRESSION, ANTERIOR LEADS BORDERLINE T WAVE ABNORMALITY- ANT/INF LEADS BASELINE ARTIFACT- I, II, III, AVR, AVL, AVF, V1-V6 BORDERLINE ECG COMPARED TO ECG 12/13/2022 10:39:03 NO SIGNIFICANT CHANGES Electronically Signed On 12-20-2022 16:52:48 [employer] SULFATE OPERATOR by Jose D Knight D.O.
--- NOTE | 2022-12-20 16:59 | ED.GENADULT ---
HPI - General Adult General Chief complaint: Shortness of Breath/Dyspnea Stated complaint: SOB Time Seen by Provider: 12/20/22 16:49 Source: patient Mode of arrival: EMS Limitations: no limitations History of Present Illness HPI narrative: This is a 72-year-old male who presents to the ED via EMS for chief complaint of shortness of breath onset x2 days. Patient was actually seen here a little over a week ago and admitted for COVID, multifocal pneumonia and hypoxia. He does have a history of COPD, metastatic cancer. Patient arrives here on 5 L of oxygen. Patient states he does not normally have to use oxygen at home. He was feeling short of breath and wheezy while in the hospital and still felt so well being discharged 2 days ago. He completed a full course of antibiotics and steroids at the hospital. He did not take any upon discharge. States he cannot walk more than 10 feet without getting short of breath. States that he used about 5 L at home. When active his sats dropped into the 75 at home and did not go above the mid 80s. Minimal cough at this point. Reports some leg swelling that is minimal. Denies fevers, chills, chest pain, abdominal pain, headache, nausea, vomiting. Reports that he used 2 rounds of albuterol and did take Spiriva this morning. Does take Eliquis regularly. Related Data Home Medications Medication Instructions Recorded Confirmed cholecalciferol (vitamin D3) 25 25 mcg PO DAILY 01/14/21 12/13/22 mcg (1,000 unit) capsule apixaban 5 mg tablet (Eliquis) 5 mg PO BID 11/29/22 12/13/22 levetiracetam 500 mg tablet 1,000 mg PO Q12H 11/29/22 12/13/22 (Keppra) mecobalamin (vitamin B12) 1,000 2,000 mcg PO DAILY 11/29/22 12/13/22 mcg chewable tablet pantoprazole 40 mg tablet,delayed 40 mg PO DAILY 11/29/22 12/13/22 release ramelteon 8 mg tablet (Rozerem) 8 mg PO QHS 11/29/22 12/13/22 sertraline 50 mg tablet (Zoloft) 50 mg PO QHS 11/29/22 12/13/22 tiotropium bromide 2.5 2 puff inhalation DAILY 11/29/22 12/13/22 mcg/actuation mist for inhalation (Spiriva Respimat) trazodone 100 mg tablet 100 mg PO QHS 11/29/22 12/13/22 vitamins A,C,A-idgf-fkutyi 2,148 1 tablet PO ONCE 11/29/22 12/13/22 mcg-113 mg-45 mg-17.4 mg tablet Allergies Allergy/AdvReac Type Severity Reaction Status Date / Time No Known Allergies Allergy Unknown Verified 12/13/22 10:38 Review of Systems Review of Systems: CONSTITUTIONAL: Denies fever, chills, or sweats. EYES: Denies visual changes, redness, or discharge. ENT: Denies rhinorrhea, congestion, sore throat, or otalgia. CARDIOVASCULAR: Denies chest pain, palpitations, or edema. RESPIRATORY: Endorses cough and dyspnea. Endorses wheezing. GASTROINTESTINAL: Denies abdominal pain, nausea, vomiting, or diarrhea. GENITOURINARY: Denies dysuria or hematuria. SKIN: Denies rash or itching. MUSCULOSKELETAL: Denies back pain, joint pain, or myalgia. Denies leg swelling or leg pain. NEUROLOGIC: Denies headache, numbness, dizziness, or weakness. PSYCHIATRIC: Denies anxiety or depression. [facility] Past Medical History Medical History Brain cancer (~2021) Esophageal cancer (~2018) History of prostate cancer Other and unspecified hyperlipidemia Peripheral polyneuropathy Surgical History Surgical History History of esophagectomy (~10/2015) S/P eye surgery (~02/2022) Family History Family History Father Family history of arthritis Malignant neoplasm of prostate Family history of congestive heart failure Mother Family history of arthritis Family history of malignant neoplasm of breast in first degree relative Social History Social History Smoking packs per day: 1.5 Smoking cigarettes per day: 30.0 Years smoked: 30 Smoking pack-years: 45.00 Smoking status: F
[2022-12-20] MEDS: IPRATROPIUM BR 0.02% INH SOLN 0.5 MG/2.5 ML VIAL INHALATION (17:26)
[2022-12-20] MEDS: ALBUTEROL SULFATE NEB 2.5 MG/3 ML INH INHALATION (17:26)
[2022-12-20 18:01] LABS: Basophils Absolute Auto 0.1 K/mm3 (0.0-0.1); Basophils Percent Auto 0.7 % (0.2-1.2); Eosinophils Percent Auto 0.3 % (0-4.4); Hematocrit 36.2 % (42.0-52.0); Hemoglobin 12.3 g/dL (14.0-18.0); Immature Granulocyte Absolute 0.23 K/mm3 (0.00-0.031); Immature Granulocyte Percent A 1.4 % (0-0.5); Lymphocytes Absolute Auto 1.01 K/mm3 (0.9-3.2); Lymphocytes Percent Auto 6.3 % (18.3-44.2); Mean Corpuscular Hemoglobin 30.4 pg (26-34); Mean Corpuscular Volume 89.4 fl (80-100); Mean Platelet Volume 8.8 fl (7.4-10.4); Monocytes Absolute Auto 2.4 K/mm3 (0.1-0.6); Monocytes Percent Auto 14.8 % (2.6-8.5); Neutrophils Absolute Auto 12.2 K/mm3 (1.3-6.7); Neutrophils Percent Auto 76.5 % (45.5-73.1); Platelet Count Result 392 k/mm3 (150-375); Red Blood Count 4.05 M/mm3 (4.6-6.20); White Blood Count 15.9 K/mm3 (4.5-10.0)
[2022-12-20 18:15] LABS: Alveolar/Arterial O2 Gradient 181.9 mmHg; Fractional Inspired Oxygen 40 %; HCO3 ABG 27.2 mEq/l (22.0-26.0); Oxygen Content ABG 16.7 %vol (16.0-22.0); Oxygen Saturation ABG 93.6 % (95.0-100.0); Oxyhemoglobin 90.8 % THb (90.0-100.0); PCO2 ABG 36.1 mmHg (35.0-45.0); PO2 ABG 61.8 mmHg (80.0-100.0); PO2 FiO2 Ratio Arterial Blood 1.54 %; Total Hemoglobin 13.1 g/dL (12.0-18.0); pH ABG 7.495 (7.350-7.450)
[2022-12-20 18:16] LABS: Alanine Aminotransferase 19 U/L (6-50); Albumin Level 3.5 g/dL (3.5-5.1); Alkaline Phosphatase 58 U/L (38-126); Anion Gap 6 mmol/L (8-16); Aspartate Amino Transferase 18 U/L (17-59); Bilirubin,Total 0.6 mg/dL (0.2-1.3); Blood Urea Nitrogen 13 mg/dL (9-20); Calcium 8.4 mg/dL (8.4-10.2); Carbon Dioxide 28 mmol/L (22-30); Chloride 98 mmol/L (98-107); Estimated Glomerular Filt Rate > 60; Glucose 109 mg/dL (65-110); Potassium 4.1 mmol/L (3.4-5.0); Sodium 132 mmol/L (137-145)
[2022-12-20 18:17] LABS: Device NASAL CANNULA; Modified Allen's Test Pass; Site Drawn LEFT RADIAL
[2022-12-20 18:24] LABS: NT Pro B Type Natriuretic Pept 451 pg/mL (19.9-100)
[2022-12-20 18:49] LABS: Procalcitonin 0.1 ng/mL
--- NOTE | 2022-12-20 19:46 | PC.NURSE ---
Oxygen titrated to 2L/min per NATI Hernandez
[2022-12-20] MEDS: ALBUTEROL SULFATE NEB 2.5 MG/3 ML INH 10 MG INHALATION (19:59)
[2022-12-20] MEDS: IPRATROPIUM BR 0.02% INH SOLN 0.5 MG/2.5 ML VIAL 1 MG INHALATION (19:59)
[2022-12-20] MEDS: CEFEPIME 2 GM/NS 50 ML 2 GM/50 ML BAG IVPB (20:56)
[2022-12-20] MEDS: SODIUM CHLORIDE 0.9% IV 1,000 ML 999 ML IV CONT (20:56)
[2022-12-20] MEDS: CIPROFLOXACIN 400 MG/D5W 200ML 200 ML 200 MG IVPB (21:26)
[2022-12-20 21:47] LABS: INR 1.4; Prothrombin Time 16.9 Seconds (11.1-14.7)
[2022-12-21] VITALS (24 sets, daily range): BP systolic 90–144; BP diastolic 46–80; PULSE 74–95; RESP 16–28; TEMP 36.3–36.9; O2SAT 93–99; BMI 26.4
[2022-12-21 01:28] LABS: Appearance Urine Clear (Clear); Bilirubin Urine Negative (Negative); Blood Urine Negative (Negative); Color Urine Yellow (Yellow); Glucose Urine UA Negative (Negative); Ketones Urine Trace mg/dL (Negative); Leukocyte Esterase Ur Negative LEU/UL (Negative); Nitrate Urine Negative (Negative); Protein Urine Negative (Negative); Specific Grav Ur 1.011 (1.001-1.035); Urobilinogen Urine 0.2 mg/dL (<2.0)
[2022-12-21 01:42] LABS: Add Urine Microscopic? NO
[2022-12-21 02:03] LABS: Influenza A QL RT-PCR Negative (Negative); Influenza B QL RT-PCR Negative (Negative); RSV RNA, RT-PCR Negative (Negative); SARS-CoV-2 RNA PCR Negative
[2022-12-21] MEDS: IPRATROPIUM BR 0.02% INH SOLN 0.5 MG/2.5 ML VIAL 1 MG INHALATION (05:50)
[2022-12-21] MEDS: ALBUTEROL SULFATE NEB 2.5 MG/3 ML INH 5 MG INHALATION (05:50)
[2022-12-21] MEDS: CEFEPIME 2 GM/NS 50 ML 2 GM/50 ML BAG IVPB ×3 (06:23→21:04)
[2022-12-21] MEDS: CIPROFLOXACIN 400 MG/D5W 200ML 200 ML 200 MG IVPB (07:56)
--- NOTE | 2022-12-21 09:22 | ADMGEN ---
This patient, Aravind Coleman, was admitted to Medical Room 241-01. Patient oriented to hospital policies and general routines including ID bracelet, bed and alarms, visiting hours, pain management, procedures, bathroom and other care routines, personal items, smoking policy, room service/diet, and visiting hours. Information on how to activate the Rapid Response Team has been discussed. Patient is encouraged to report perceived risks to care and to ask questions if they do not understand what they are told or what they should do.
[2022-12-21 10:45] LABS: Estimated CRCL calculation 140 ml/min; Estimated Glomerular Filt Rate > 60
--- NOTE | 2022-12-21 10:50 | PM.IMHP ---
H&P: HPI History of Present Illness Date/Time: 12/21/22 10:50 Chief Complaint: shortness of breath Narrative: ED-HPI narrative: This is a 72-year-old male who presents to the ED via EMS for chief complaint of shortness of breath onset x2 days.? Patient was actually seen here a little over a week ago and admitted for COVID, multifocal pneumonia and hypoxia.? He does have a history of COPD, metastatic cancer.? Patient arrives here on 5 L of oxygen.? Patient states he does not normally have to use oxygen at home.? He was feeling short of breath and wheezy while in the hospital and still felt so well being discharged 2 days ago.? He completed a full course of antibiotics and steroids at the hospital.? He did not take any upon discharge.? States he cannot walk more than 10 feet without getting short of breath.? States that he used about 5 L at home.? When active his sats dropped into the 75 at home and did not go above the mid 80s.? Minimal cough at this point.? Reports some leg swelling that is minimal.? Denies fevers, chills, chest pain, abdominal pain, headache, nausea, vomiting. 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 patient admitted as inpatient will stay in the hospital for 2 minutes with exacerbation of COPD and pneumonia. Review of Systems Constitutional: Constitutional: Reports no additional constitutional complaints Eyes: Eyes: Reports no additional eye complaints ENT: Reports system reviewed and no additional complaints, except as documented Cardiovascular: Cardiovascular: Reports no additional cardiovascular complaints Respiratory: Respiratory: Reports no additional respiratory complaints Gastrointestinal: Gastrointestinal: Reports no additional gastrointestinal complaints Musculoskeletal: Musculoskeletal: Reports no additional musculoskeletal complaints Neurologic: Reports system reviewed and no additional complaints, except as documented Psychiatric: Psychiatric: Reports no additional psychiatric complaints Endocrine: Endocrine: Reports no additional endocrine complaints Hematologic/Lymphatic: Hematologic/Lymphatic: Reports no additional hematologic/lymphatic complaints Allergic/Immunologic: Allergic/Immunologic: Reports no additional allergic/immunologic complaints [facility] Past Medical History Medical History Brain cancer (~2021) Esophageal cancer (~2018) History of prostate cancer Other and unspecified hyperlipidemia Peripheral polyneuropathy Surgical History Surgical History History of esophagectomy (~10/2015) S/P eye surgery (~02/2022) Family History Family History Father Family history of arthritis Malignant neoplasm of prostate Family history of congestive heart failure Mother Family history of arthritis Family history of malignant neoplasm of breast in first degree relative Social History Social History Smoking packs per day: 1.5 Smoking cigarettes per day: 30.0 Years smoked:
--- NOTE | 2022-12-21 12:16 | ECHO_ITS ---
Patient Info Name: Aravind Coleman Age: 72 years : 1950 Gender: Male Ht: 70 in Wt: 183 lbs BSA: 2.04 m2 HR: 140 bpm BP: 118 / 77 mmHg Technical Quality: Fair Exam Date: 12/21/2022 4:21 PM Exam Location: [facility] Patient Status: Inpatient Admit Date: 12/21/2022 Staff Ordering Physician: Aravind Cai MD Group Supervisor Yard: Kirsten Quick RDCS Attending Provider: Loretta Rodriguez DO Referring Physician: Trell VIDES; Exam Type: CA echo doppler color flow Study Info Indications - LUEVANO, assess LV and RV function, valves Complete two-dimensional, color flow and Doppler transthoracic echocardiogram is performed. Summary 1. Complete two-dimensional, color flow and Doppler transthoracic echocardiogram is performed. 2. Left ventricular chamber dimension is normal. 3. Left ventricular systolic function is normal, estimated at 65-70%. 4. The left ventricular diastolic function is grade I diastolic dysfunction. 5. E/e' 8 is minimally elevated. 6. There is mild aortic valve sclerosis. 7. No pulmonary hypertension, estimated pulmonary arterial systolic pressure is 24 mmHg. Left Ventricle E/e' 8 is minimally elevated. Left ventricular chamber dimension is normal. Left ventricular systolic function is normal, estimated at 65-70%. The left ventricular diastolic function is grade I diastolic dysfunction. Right Ventricle Right ventricular systolic function is normal and with normal TAPSE 1.9 cm. Right ventricular chamber dimension is normal. Left Atria Left atrial chamber dimension is normal. Right Atria Right atrial chamber dimension is normal. Aortic Valve The aortic valve is trileaflet. There is mild aortic valve sclerosis. There is no aortic valve stenosis. There is no aortic valve regurgitation. Pulmonic Valve There is no pulmonic regurgitation. Mitral Valve There is no mitral valve stenosis. There is no mitral valve regurgitation. Tricuspid Valve There is no tricuspid valve regurgitation. No pulmonary hypertension, estimated pulmonary arterial systolic pressure is 24 mmHg. Pericardium/Pleural There is no pericardial effusion. Inferior Vena Cava Normal inferior vena cava with >50% collapse upon inspiration consistent with normal right atrial pressure, 5 mmHg. Aorta The aortic root size at the sinus of Valsalva is normal. Left Ventricular Outflow Tract Name Value Normal LVOT 2D LVOT Diameter 2.0 cm LVOT Doppler LVOT Peak Gradient 3 mmHg LVOT Mean Gradient 1 mmHg LVOT VTI 18 cm LVOT VTI/AV VTI Ratio 0.7 LVOT Stroke Volume 57 ml LVOT CO 3.1 l/min LVOT CI 1.5 l/min/m2 Pulmonic Valve Name Value Normal RVOT Doppler
--- NOTE | 2022-12-21 12:17 | PM.CNPUL ---
Assessment and Plan Assessment and plan (1) Esophageal cancer: Onset Date: ~2018 Qualifiers: Malignant neoplasm of esophagus location: unspecified location Qualified Code(s): C15.9 - Malignant neoplasm of esophagus, unspecified Code(s): C15.9 - Malignant neoplasm of esophagus, unspecified Status: Acute Assessment and Plan: Regarding his metastatic esophageal cancer (see note from Dr. Veliz from 11/01/2022 in our system). He is s/p radiation and chemotherapy followed by esophagectomy 2015 with recurrence requiring FOLFOX 2018, FOLFIRI 07/14/2021 with pneumonitis after 2 rounds. Nivolumab 08/31/09/10/22 With pneumonitis and on 09/03 underwent bronchoscopy with a right upper lobe mass with endobronchial occlusion and underwent tumor debulking with jew of patency. Biopsy showed poorly differentiated squamous cell. He required supplemental oxygen and he was treated with a prednisone taper which he finished approximately 11/30/2022. He had been off supplemental oxygen since the middle of October. Followed at [facility] by his oncologist Dr. Veliz. I will order CT scan of the chest to reassess his lobar collapse and pulmonary encasement of his right pulmonary artery. Agree with transfer to higher level care facility at [facility]. (2) COPD (chronic obstructive pulmonary disease): Code(s): J44.9 - Chronic obstructive pulmonary disease, unspecified Status: Acute Assessment and Plan: patient carries a diagnosis of COPD. 60 pack year tobacco use quit in 2007. I have no PFTs. CT scan of the chest on 12/13/2022 shows no emphysematous changes. He is maintained on Spiriva Respimat And rescue albuterol. Currently the patient has inspiratory and expiratory wheezes and previous CT scan demonstrated anterior segment of the right upper lobe collapse as well as encasement of the right pulmonary artery. He may have a COPD exacerbation or may have wheezing from a mechanical narrowing from his metastatic esophageal cancer. His D-dimer is negative and I will order a CT of the chest without contrast to reassess his lung larios. He also had a history of COVID pneumonia on 12/06/[address] scan will allow us to compare infiltrates to the CT scan on 12/13/2022. COVID influenza and RSV RT PCR studies are negative. Plan: I will change his steroids to Solu-Medrol 20 mg IV q.6 hours, I will place him on albuterol and ipratropium nebulizers q.4 hours. The patient was empirically started on vancomycin, cefepime and ciprofloxacin in the emergency department. I will discontinue the ciprofloxacin and start him on Levaquin. Currently the patient is on 2 L nasal cannula and there was no evidence of hypercarbic respiratory failure on his blood gas from the emergency department (7.50/36/62). I will order an echocardiogram to assess his LV, RV, valvular function and look for any evidence of cancer involvement. Will follow with you. History of Present Illness History of Present Illness Consult date: 12/21/22 Chief complaint: PNA/Lung CA Narrative: 12/21/2022: This is a new pulmonary consult for shortness of breath. 72-year-old man with a history of COPD, metastatic esophageal cancer status, COVID 12/06/2022, PE in December of 2019 and a new PE a in on Eliquis Regarding his metastatic esophageal cancer (see note from Dr. Veliz from 11/01/2022 in our system). He is s/p radiation and chemotherapy followed by esophagectomy 2015 with recurrence requiring FOLFOX 2018, FOLFIRI 07/14/2021 with pneumonitis after 2 rounds. Nivolumab 08/31/09/10/22 With pneumonitis and on 09/03 underwent bronchoscopy with a right upper lobe mass with endobronchial occlusion and underwent tumor debulking with jew of patency. Biopsy showed poorly differentiated squamous cell. He required supplemental oxygen and he was treated with a prednisone taper which he finished approximately 11/30/2022.
[2022-12-21 12:27] LABS: D Dimer 0.47 ug/mL (<0.48)
[2022-12-21] MEDS: IPRATROPIUM BR 0.02% INH SOLN 0.5 MG/2.5 ML VIAL INHALATION ×2 (13:11→19:35)
[2022-12-21] MEDS: ALBUTEROL SULFATE NEB 2.5 MG/3 ML INH INHALATION ×2 (13:11→19:35)
[2022-12-21] MEDS: levETIRAcetam 500 MG TABLET 1000 MG PO ×2 (15:12→21:03)
[2022-12-21] MEDS: CHOLECALCIFEROL 1,000 UNITS TABLET 1000 UNITS PO (15:13)
[2022-12-21] MEDS: lisinopriL 2.5 MG TABLET PO (15:13)
[2022-12-21] MEDS: LORATADINE 10 MG TABLET PO (15:14)
[2022-12-21] MEDS: CYANOCOBALAMIN 1,000 MCG TABLET 2000 MCG PO (15:14)
[2022-12-21] MEDS: PANTOPRAZOLE 40 MG TABLET PO (15:14)
[2022-12-21] MEDS: ALBUTEROL SULFATE (*SP) AEROSOL 1 PUFF INHALATION (16:15)
[2022-12-21] MEDS: OPTI-GEN TAB 1 TABLET PO (17:34)
[2022-12-21] MEDS: traZODone HCL 50 MG TABLET 100 MG PO (19:02)
[2022-12-21] MEDS: SERTRALINE HCL 25 MG TABLET 75 MG PO (19:02)
[2022-12-21] MEDS: APIXABAN 5 MG TABLET PO (21:03)
[2022-12-22] VITALS (29 sets, daily range): BP systolic 88–146; BP diastolic 56–86; PULSE 66–141; RESP 18–37; TEMP 35.9–38.3; O2SAT 91–100
[2022-12-22] MEDS: IPRATROPIUM BR 0.02% INH SOLN 0.5 MG/2.5 ML VIAL INHALATION ×6 (03:49→23:28)
[2022-12-22] MEDS: ALBUTEROL SULFATE NEB 2.5 MG/3 ML INH INHALATION ×6 (03:49→23:28)
[2022-12-22] MEDS: CEFEPIME 2 GM/NS 50 ML 2 GM/50 ML BAG IVPB ×3 (05:38→20:34)
[2022-12-22 05:52] LABS: Hematocrit 34.4 % (42.0-52.0); Hemoglobin 11.5 g/dL (14.0-18.0); Mean Corpuscular HGB Conc 33.4 g/dl (32-36); Mean Corpuscular Hemoglobin 30.2 pg (26-34); Mean Corpuscular Volume 90.3 fl (80-100); Mean Platelet Volume 8.8 fl (7.4-10.4); Platelet Count Result 365 k/mm3 (150-375); Red Blood Count 3.81 M/mm3 (4.6-6.20); Red Cell Distribution Width 17.8 % (11.5-14.5); White Blood Count 17.2 K/mm3 (4.5-10.0)
[2022-12-22 06:01] LABS: Estimated CRCL calculation 140 ml/min; Estimated Glomerular Filt Rate > 60; Magnesium 1.9 mg/dL (1.6-2.3)
[2022-12-22] MEDS: CYANOCOBALAMIN 1,000 MCG TABLET 2000 MCG PO (08:04)
[2022-12-22] MEDS: PANTOPRAZOLE 40 MG TABLET PO (08:05)
[2022-12-22] MEDS: APIXABAN 5 MG TABLET PO ×2 (08:05→20:42)
[2022-12-22] MEDS: lisinopriL 2.5 MG TABLET PO (08:05)
[2022-12-22] MEDS: levETIRAcetam 500 MG TABLET 1000 MG PO ×2 (08:05→20:42)
[2022-12-22] MEDS: CHOLECALCIFEROL 1,000 UNITS TABLET 1000 UNITS PO (08:05)
[2022-12-22] MEDS: OPTI-GEN TAB 1 TABLET PO (08:05)
[2022-12-22] MEDS: LORATADINE 10 MG TABLET PO (08:05)
--- NOTE | 2022-12-22 09:51 | PM.PNPUL ---
Progress Note: A&P Assessment and Plan (1) Esophageal cancer: Onset Date: ~2018 Qualifiers: Malignant neoplasm of esophagus location: unspecified location Qualified Code(s): C15.9 - Malignant neoplasm of esophagus, unspecified Code(s): C15.9 - Malignant neoplasm of esophagus, unspecified Status: Acute Assessment and Plan: Regarding his metastatic esophageal cancer (see note from Dr. Veliz from 11/01/2022 in our system). He is s/p radiation and chemotherapy followed by esophagectomy 2015 with recurrence requiring FOLFOX 2018, FOLFIRI 07/14/2021 with pneumonitis after 2 rounds. Nivolumab 08/31// With pneumonitis and on 09/03 underwent bronchoscopy with a right upper lobe mass with endobronchial occlusion and underwent tumor debulking with roman catholic of patency. Biopsy showed poorly differentiated squamous cell. He required supplemental oxygen and he was treated with a prednisone taper which he finished approximately 11/30/2022. He had been off supplemental oxygen since the middle of October. Followed at [facility] by his oncologist Dr. Veliz. I will order CT scan of the chest to reassess his lobar collapse and pulmonary encasement of his right pulmonary artery. Agree with transfer to higher level care facility at [facility] and accepted to [facility] on 12/21, waiting for bed. D-dimer was negative and CT scan of the chest demonstrated improving interstitial infiltrates on the right and worsening on the left with continued evidence of metastatic esophageal cancer with endobronchial lesions in the right mainstem, right upper lobe and right bronchus intermedius without lobar collapse. echocardiogram with normal LV function, grade 1 diastolic dysfunction, normal RV size and function, normal right atrium and no pericardial effusion with a PASP of 24 12/22 patient continues with endobronchial mass on a CT scan of the chest with no lobar collapse. There is no pericardial involvement on his echocardiogram. (2) COPD (chronic obstructive pulmonary disease): Code(s): J44.9 - Chronic obstructive pulmonary disease, unspecified Status: Acute Assessment and Plan: patient carries a diagnosis of COPD. 60 pack year tobacco use quit in 2007. I have no PFTs. CT scan of the chest on 12/13/2022 shows no emphysematous changes. He is maintained on Spiriva Respimat and rescue albuterol. Currently the patient has inspiratory and expiratory wheezes and previous CT scan demonstrated anterior segment of the right upper lobe collapse as well as encasement of the right pulmonary artery. He may have a COPD exacerbation or may have wheezing from a mechanical narrowing from his metastatic esophageal cancer. His D-dimer is negative and I will order a CT of the chest without contrast to reassess his lung larios. He also had a history of COVID pneumonia on 12/06/[address] scan will allow us to compare infiltrates to the CT scan on 12/13/2022. COVID influenza and RSV RT PCR studies are negative. Plan: I will change his steroids to Solu-Medrol 20 mg IV q.6 hours, I will place him on albuterol and ipratropium nebulizers q.4 hours. The patient was empirically started on vancomycin, cefepime and ciprofloxacin in the emergency department. I will discontinue the ciprofloxacin and start him on Levaquin. Currently the patient is on 2 L nasal cannula and there was no evidence of hypercarbic respiratory failure on his blood gas from the emergency department (7.50/36/62). I will order an echocardiogram to assess his LV, RV, valvular function and look for any evidence of cancer involvement. D-dimer was negative and CT scan of the chest demonstrated improving interstitial infiltrates on the right and worsening on the left with continued evidence of metastatic esophageal cancer with endobronchial lesions in the right mainstem, right upper lobe and right bronchus intermedius without lobar collapse. Echoc
--- NOTE | 2022-12-22 11:27 | ECG_ITS ---
Measurements Intervals [place] Rate: 116 P: 17 UT: 176 QRS: -39 QRSD: 90 T: 49 QT: 323 QTc: 450 Interpretive Statements SINUS TACHYCARDIA ATRIAL AND VENTRICULAR PREMATURE COMPLEXES LEFT AXIS DEVIATION LEFT ATRIAL ENLARGEMENT INCOMPLETE RIGHT BUNDLE BRANCH BLOCK POOR R WAVE PROGRESSION, ANTERIOR LEADS BORDERLINE ST-T WAVE ABNORMALITY- HIGH LATERAL LEADS BASELINE ARTIFACT- I, II, III, AVR, AVL, AVF, V1-V6 ABNORMAL ECG COMPARED TO ECG 12/20/2022 16:45:10 SINUS TACHYCARDIA NOW PRESENT Electronically Signed On 12-22-2022 11:47:53 TAX FORM PREPARER by Jose D Knight D.O.
[2022-12-22 11:31] LABS: Glucose Point of Care 90 mg/dl (65-105)
[2022-12-22 11:36] LABS: Alveolar/Arterial O2 Gradient 614.9 mmHg; Base Excess ABG -1.2 mEq/l (+/-2.0); Fractional Inspired Oxygen 100 %; HCO3 ABG 22.7 mEq/l (22.0-26.0); Oxygen Content ABG 17.7 %vol (16.0-22.0); Oxygen Saturation ABG 92.6 % (95.0-100.0); Oxyhemoglobin 91.1 % THb (90.0-100.0); PCO2 ABG 35.5 mmHg (35.0-45.0); PO2 ABG 62.6 mmHg (80.0-100.0); PO2 FiO2 Ratio Arterial Blood 0.63 %; Total Hemoglobin 13.8 g/dL (12.0-18.0); pH ABG 7.423 (7.350-7.450)
[2022-12-22 11:38] LABS: Device NON-REBREATHER MASK; Site Drawn LEFT BRACHIAL
--- NOTE | 2022-12-22 11:55 | PC.NURSE ---
Called into patient room by respiratory therapist. Patient o2 saturation was in the 60's. Respiratory was giving breathing treatment and patients 02 sat dropped [id number]. Rapid response called. Dr Dejesus notified. Patient was placed on 15L non rebreather and transferred to ICU. Report given to ICU nurse at bedside.
--- NOTE | 2022-12-22 11:58 | PC.NURSE ---
This patient, Aravind Coleman, was transferred to [ICU ] on 12/22/22 at 1158. Personal belongings sent with patient. Report given to [ICU nurse ]. Appropriate documentation sent with patient.
--- NOTE | 2022-12-22 12:10 | PM.IMPN ---
Progress Note: A&P Assessment and Plan (1) COPD (chronic obstructive pulmonary disease): Code(s): J44.9 - Chronic obstructive pulmonary disease, unspecified Status: Acute Assessment and Plan: Continue treatment for COPD exacerbation and pneumonia. Continue IV antibiotics. Patient is currently on the wait list to [place] (2) Lung neoplasm: Code(s): D49.1 - Neoplasm of unspecified behavior of respiratory system Status: Acute Assessment and Plan: patient being seen by oncologist at [facility] for 8 years (3) Pneumonia: Code(s): J18.9 - Pneumonia, unspecified organism Status: Acute Assessment and Plan: patient being treated with ciprofloxacin, vancomycin and cefpime patient be seen energy manager and further recommendation to follow. Subjective Date/time seen: 12/22/22 12:10 No new complaints this morning. Exam Narrative: Patient is comfortable, NAD HEENT: eyes are clear and none icteric LUNGS: bilateral fair air entry with wheezing and rhonchi HEART: RR S1S2 ABD: not distended Lower extremities: no edema SKIN: nonjaundiced Neuro: grossly intact. Objective Data Vital Signs Vital Signs: Vital Signs - 24 hr 12/21/22 12:16 12/21/22 13:11 12/21/22 13:25 Temperature Pulse Rate 84 77 88 Respiratory Rate 18 18 Blood Pressure Pulse Oximetry Oxygen Delivery Oxygen Flow Rate Fraction of Inspired Oxygen 12/21/22 13:12 12/21/22 14:00 12/21/22 16:00 Temperature 97.5 F L Pulse Rate 77 85 88 Respiratory Rate 18 16 Blood Pressure 110/61 Pulse Oximetry 95 99 Oxygen Delivery Nasal Cannula Oxygen Flow Rate 2 Fraction of Inspired Oxygen 28 12/21/22 16:15 12/21/22 19:36 12/21/22 19:36 Temperature Pulse Rate 87 87 87 Respiratory Rate 20 18 20 Blood Pressure Pulse Oximetry 93 Oxygen Delivery Nasal Cannula Oxygen Flow Rate 3 Fraction of Inspired Oxygen 32 12/21/22 19:50 12/21/22 19:45 12/21/22 20:50 Temperature 97.3 F L Pulse Rate 89 90 Respiratory Rate 20 20 Blood Pressure 90/46 L Pulse Oximetry 94 94 Oxygen Delivery Nasal Cannula Oxygen Flow Rate 3 Fraction of Inspired Oxygen 12/22/22 00:12 12/21/22 20:00 12/22/22 00:26 Temperature 97.1 F L Pulse Rate 70 91 73 Respiratory Rate 20 Blood Pressure 99/56 L Pulse Oximetry 96 Oxygen Delivery Oxygen Flow Rate Fraction of Inspired Oxygen 12/22/22 03:17 12/22/22 03:50 12/22/22 03:57 Temperature 96.6 F L Pulse Rate 75 85 88 Respiratory Rate 18 22 H 21 H Blood Pressure 107/64 Pulse Oximetry 94 Oxygen Delivery Oxygen Flow Rate Fraction of Inspired Oxygen 12/22/22 04:00 12/22/22 07:17 12/22/22 07:17 Temperature Pulse Rate 76 77 Respiratory Rate 22 H Blood Pressure Pulse Oximetry 92 Oxygen Delivery Nasal Cannula Oxygen Flow Rate 3 Fraction of Inspired Oxygen 12/22/22 07:31 12/22/22 08:03 12/22/22 08:00 Temperature Pulse Rate 72 83 Respiratory Rate 22 H Blood Pressure 132/70 Pulse Oximetry 91 91 Oxygen Delivery Nasal Cannula Oxygen Flow Rate 3 Fraction of Inspired Oxygen 12/22/22 08:00 12/22/22 11:09 12/22/22 11:44 Temperature Pulse Rate 83 104 H 114 H Respiratory Rate 27 H Blood Pressure Pulse Oximetry 97 Oxygen Delivery BiPAP Oxygen Flow Rate Fraction of Inspired Oxygen 12/22/22 09:45 Temperature Pulse Rate Respiratory Rate Blood Pressure Pulse Oximetry 92 Oxygen Delivery Nasal Cannula Oxygen Flow Rate 6 Fraction of Inspired Oxygen Intake/Output Intake/Output: Intake & Output 12/19/22 12/20/22 12/21/22 12/22/22 23:59 23:59 23:59 23:59 Intake Total 1250 1970 680 Output Total 400 1150 Balance 1250 1570 -470 Meds/Results Medications: Active Medications Generic Name Dose Route Start Last Admin Trade Name Freq PRN Reason Stop Dose Admin Albuterol 2.5 mg 12/21/22 12:00
[2022-12-22] MEDS: methylPREDNISolone SOD SUCC 40 MG VIAL 20 MG IV PUSH ×2 (13:35→17:56)
[2022-12-22] MEDS: ACETAMINOPHEN 325 MG TABLET 650 MG PO (14:37)
[2022-12-22 15:21] LABS: Influenza A QL RT-PCR Negative (Negative); Influenza B QL RT-PCR Negative (Negative); RSV RNA, RT-PCR Negative (Negative); SARS-CoV-2 RNA PCR Negative
--- NOTE | 2022-12-22 15:59 | PC.NURSE ---
This patient, Aravind Coleman, was received from [facility][ ] on 12/22/22 at 1130. Patient/family oriented to unit policies and routines
[2022-12-22] MEDS: traZODone HCL 50 MG TABLET 100 MG PO (20:42)
[2022-12-22] MEDS: SERTRALINE HCL 25 MG TABLET 75 MG PO (20:44)
[2022-12-23] VITALS (34 sets, daily range): BP systolic 97–129; BP diastolic 57–91; PULSE 62–117; RESP 15–32; TEMP 36.7–37.2; O2SAT 95–100
[2022-12-23] MEDS: methylPREDNISolone SOD SUCC 40 MG VIAL 20 MG IV PUSH ×4 (00:47→20:17)
[2022-12-23] MEDS: ALBUTEROL SULFATE NEB 2.5 MG/3 ML INH INHALATION ×6 (04:01→23:27)
[2022-12-23] MEDS: IPRATROPIUM BR 0.02% INH SOLN 0.5 MG/2.5 ML VIAL INHALATION ×6 (04:01→23:27)
[2022-12-23 04:51] LABS: Hematocrit 33.5 % (42.0-52.0); Hemoglobin 11.4 g/dL (14.0-18.0); Mean Corpuscular Hemoglobin 30.6 pg (26-34); Mean Corpuscular Volume 89.8 fl (80-100); Mean Platelet Volume 8.4 fl (7.4-10.4); Platelet Count Result 318 k/mm3 (150-375); Red Blood Count 3.73 M/mm3 (4.6-6.20); Red Cell Distribution Width 17.5 % (11.5-14.5)
[2022-12-23] MEDS: CEFEPIME 2 GM/NS 50 ML 2 GM/50 ML BAG IVPB ×3 (05:01→20:15)
[2022-12-23 05:04] LABS: Estimated CRCL calculation 140 ml/min; Estimated Glomerular Filt Rate > 60; Magnesium 1.9 mg/dL (1.6-2.3)
[2022-12-23 05:50] LABS: Vancomycin Trough 11.8 ug/mL (10.0-20.0)
[2022-12-23] MEDS: CYANOCOBALAMIN 1,000 MCG TABLET 2000 MCG PO (08:57)
[2022-12-23] MEDS: LORATADINE 10 MG TABLET PO (08:57)
[2022-12-23] MEDS: CHOLECALCIFEROL 1,000 UNITS TABLET 1000 UNITS PO (08:57)
[2022-12-23] MEDS: lisinopriL 2.5 MG TABLET PO (08:57)
[2022-12-23] MEDS: OPTI-GEN TAB 1 TABLET PO ×2 (08:57→17:38)
[2022-12-23] MEDS: levETIRAcetam 500 MG TABLET 1000 MG PO ×2 (08:57→20:14)
[2022-12-23] MEDS: APIXABAN 5 MG TABLET PO ×2 (08:57→20:13)
[2022-12-23] MEDS: PANTOPRAZOLE 40 MG TABLET PO (08:57)
--- NOTE | 2022-12-23 11:40 | PM.IMPN ---
Progress Note: A&P Assessment and Plan (1) COPD (chronic obstructive pulmonary disease): Code(s): J44.9 - Chronic obstructive pulmonary disease, unspecified Status: Acute Assessment and Plan: Continue treatment for COPD exacerbation and pneumonia. Continue IV antibiotics. 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 Subjective Date/time seen: 12/23/22 11:40 No new complaints Exam Narrative: Patient is comfortable, NAD HEENT: eyes are clear and none icteric LUNGS: bilateral fair air entry with wheezing and rhonchi HEART: RR S1S2 ABD: not distended Lower extremities: no edema SKIN: nonjaundiced Neuro: grossly intact. Objective Data Vital Signs Vital Signs: Vital Signs - 24 hr 12/22/22 11:44 12/22/22 12:00 12/22/22 12:00 Temperature Pulse Rate 114 H 115 H 115 H Respiratory Rate 27 H 27 H Blood Pressure Pulse Oximetry 97 97 Oxygen Delivery BiPAP BiPAP Oxygen Flow Rate Fraction of Inspired Oxygen 12/22/22 13:19 12/22/22 14:00 12/22/22 14:00 Temperature Pulse Rate 112 H 112 H 118 H Respiratory Rate 23 H 26 H Blood Pressure 146/86 H Pulse Oximetry 100 100 Oxygen Delivery BiPAP Oxygen Flow Rate Fraction of Inspired Oxygen 12/22/22 15:22 12/22/22 15:54 12/22/22 16:10 Temperature 101.0 F H Pulse Rate 103 H 102 H Respiratory Rate 22 H 26 H Blood Pressure Pulse Oximetry Oxygen Delivery Oxygen Flow Rate Fraction of Inspired Oxygen 12/22/22 16:10 12/22/22 16:00 12/22/22 16:00 Temperature Pulse Rate 102 H 141 H 82 Respiratory Rate 37 H 24 H Blood Pressure Pulse Oximetry 100 100 Oxygen Delivery BiPAP BiPAP Oxygen Flow Rate Fraction of Inspired Oxygen 12/22/22 18:00 12/22/22 19:39 12/22/22 19:41 Temperature Pulse Rate 82 70 70 Respiratory Rate 23 H 23 H Blood Pressure Pulse Oximetry 100 Oxygen Delivery BiPAP Oxygen Flow Rate Fraction of Inspired Oxygen 12/22/22 19:42 12/22/22 20:00 12/22/22 20:00 Temperature Pulse Rate 70 75 66 Respiratory Rate 23 H 22 H Blood Pressure Pulse Oximetry 100 Oxygen Delivery BiPAP Oxygen Flow Rate Fraction of Inspired Oxygen 80 12/22/22 20:00 12/22/22 20:00 12/22/22 22:00 Temperature 99.5 F Pulse Rate 66 66 67 Respiratory Rate 20 20 Blood Pressure 88/59 L Pulse Oximetry 100 100 Oxygen Delivery BiPAP Oxygen Flow Rate Fraction of Inspired Oxygen 90 12/22/22 23:29 12/22/22 23:33 12/22/22 23:36 Temperature Pulse Rate 74 75 75 Respiratory Rate 23 H 20 22 H Blood Pressure Pulse Oximetry 100 Oxygen Delivery BiPAP Oxygen Flow Rate Fraction of Inspired Oxygen 12/23/22 00:00 12/23/22 00:00 12/23/22 00:00 Temperature 98.1 F Pulse Rate 71 71 71 Respiratory Rate 22 H 18 Blood Pressure 101/74 Pulse Oximetry 100 100 Oxygen Delivery BiPAP Oxygen Flow Rate Fraction of Inspired Oxygen 80 12/23/22 02:00 12/23/22 04:01 12/23/22 04:00 Temperature Pulse Rate 67 62 68 Respiratory Rate 21 H Blood Pressure Pulse Oximetry Oxygen Delivery Oxygen Flow Rate Fraction of Inspired Oxygen 12/23/22 04:00 12/23/22 04:00 12/23/22 04:20 Temperature 98.3 F Pulse Rate 68 68 65 Respiratory Rate 15 15 21 H Blood Pressure 106/65 Pulse Oximetry 100 100 Oxygen Delivery BiPAP Oxygen Flow Rate Fraction of Inspired Oxygen 80 12/23/22 04:30 12/23/22 06:00 12/23/22 08:08 Temperature Pu
[2022-12-23] MEDS: CENTRAL LINE FLUSH 10 ML IV PUSH ×2 (13:01→20:15)
--- NOTE | 2022-12-23 13:03 | PM.PNPUL ---
Progress Note: A&P Assessment and Plan (1) Esophageal cancer: Onset Date: ~2018 Qualifiers: Malignant neoplasm of esophagus location: unspecified location Qualified Code(s): C15.9 - Malignant neoplasm of esophagus, unspecified Code(s): C15.9 - Malignant neoplasm of esophagus, unspecified Status: Acute Assessment and Plan: Regarding his metastatic esophageal cancer (see note from Dr. Veliz from 11/01/2022 in our system). He is s/p radiation and chemotherapy followed by esophagectomy 2015 with recurrence requiring FOLFOX 2018, FOLFIRI 07/14/2021 with pneumonitis after 2 rounds. Nivolumab 08/31// With pneumonitis and on 09/03 underwent bronchoscopy with a right upper lobe mass with endobronchial occlusion and underwent tumor debulking with mu-ism of patency. Biopsy showed poorly differentiated squamous cell. He required supplemental oxygen and he was treated with a prednisone taper which he finished approximately 11/30/2022. He had been off supplemental oxygen since the middle of October. Followed at [facility] by his oncologist Dr. Veliz. I will order CT scan of the chest to reassess his lobar collapse and pulmonary encasement of his right pulmonary artery. Agree with transfer to higher level care facility at [facility] and accepted to [facility] on 12/21, waiting for bed. D-dimer was negative and CT scan of the chest demonstrated improving interstitial infiltrates on the right and worsening on the left with continued evidence of metastatic esophageal cancer with endobronchial lesions in the right mainstem, right upper lobe and right bronchus intermedius with lobar collapse. echocardiogram with normal LV function, grade 1 diastolic dysfunction, normal RV size and function, normal right atrium and no pericardial effusion with a PASP of 24 12/22 patient continues with endobronchial mass on a CT scan of the chest with partial RUL collapse. There is no pericardial involvement on his echocardiogram. (2) COPD (chronic obstructive pulmonary disease): Code(s): J44.9 - Chronic obstructive pulmonary disease, unspecified Status: Acute Assessment and Plan: patient carries a diagnosis of COPD. 60 pack year tobacco use quit in 2007. I have no PFTs. CT scan of the chest on 12/13/2022 shows no emphysematous changes. He is maintained on Spiriva Respimat and rescue albuterol. Currently the patient has inspiratory and expiratory wheezes and previous CT scan demonstrated anterior segment of the right upper lobe collapse as well as encasement of the right pulmonary artery. He may have a COPD exacerbation or may have wheezing from a mechanical narrowing from his metastatic esophageal cancer. His D-dimer is negative and I will order a CT of the chest without contrast to reassess his lung larios. He also had a history of COVID pneumonia on 12/06/[address] scan will allow us to compare infiltrates to the CT scan on 12/13/2022. COVID influenza and RSV RT PCR studies are negative. Plan: I will change his steroids to Solu-Medrol 20 mg IV q.6 hours, I will place him on albuterol and ipratropium nebulizers q.4 hours. The patient was empirically started on vancomycin, cefepime and ciprofloxacin in the emergency department. I will discontinue the ciprofloxacin and start him on Levaquin. Currently the patient is on 2 L nasal cannula and there was no evidence of hypercarbic respiratory failure on his blood gas from the emergency department (7.50/36/62). I will order an echocardiogram to assess his LV, RV, valvular function and look for any evidence of cancer involvement. D-dimer was negative and CT scan of the chest demonstrated improving interstitial infiltrates on the right and worsening on the left with continued evidence of metastatic esophageal cancer with endobronchial lesions in the right mainstem, right upper lobe and right bronchus intermedius without lobar collapse. Echoc
[2022-12-23] MEDS: traZODone HCL 50 MG TABLET 100 MG PO (20:12)
[2022-12-23] MEDS: SERTRALINE HCL 25 MG TABLET 75 MG PO (20:13)
[2022-12-24] VITALS (7 sets, daily range): BP systolic 87–125; BP diastolic 52–87; PULSE 71–101; RESP 15–27; TEMP 36.6; O2SAT 98–100
--- NOTE | 2022-12-24 03:53 | PC.NURSE ---
0345 Report called to LIAM Martinez in [place] at [facility]. Patient was made aware and signed consent to transfer. Patient going to room 7817.
[2022-12-24] MEDS: ALBUTEROL SULFATE NEB 2.5 MG/3 ML INH INHALATION (05:03)
[2022-12-24] MEDS: IPRATROPIUM BR 0.02% INH SOLN 0.5 MG/2.5 ML VIAL INHALATION (05:03)
[2022-12-24] MEDS: CENTRAL LINE FLUSH 10 ML IV PUSH (05:10)
[2022-12-24] MEDS: CEFEPIME 2 GM/NS 50 ML 2 GM/50 ML BAG IVPB (05:10)
[2022-12-24 05:47] LABS: Hematocrit 34.2 % (42.0-52.0); Hemoglobin 11.6 g/dL (14.0-18.0); Mean Corpuscular HGB Conc 33.9 g/dl (32-36); Mean Corpuscular Hemoglobin 30.1 pg (26-34); Mean Corpuscular Volume 88.6 fl (80-100); Mean Platelet Volume 8.8 fl (7.4-10.4); Platelet Count Result 324 k/mm3 (150-375); Red Blood Count 3.86 M/mm3 (4.6-6.20); Red Cell Distribution Width 17.2 % (11.5-14.5); White Blood Count 21.2 K/mm3 (4.5-10.0)
[2022-12-24 05:58] LABS: Vancomycin Trough 17.6 ug/mL (10.0-20.0)
--- NOTE | 2022-12-24 06:38 | PC.NURSE ---
0635 head start teacher at [facility] called and informed that patient is on the way. Patient already notified his emergency lithography contact worker, Julieta, that he was being transferred to [place].
--- NOTE | 2023-01-19 07:35 | PM.TDS ---
Transfer Discharge Sum: Prov Provider Date of admission: 12/21/22 07:33 Primary care physician: Munira Paez NP Admitting clinician: Loretta Rodriguez DO Consults: 12/21/22 10:51 Consult to Physician Routine Comment: Spoke to 3.7.23 @ 1100--ab/us Consulting Provider: Aravind Cai fisher scallop/MD group to consult: Dr. Cai Reason for consultation: history of lung CA, COPD now more shortness of breath Has provider been notified: Yes DS: Admitting Diagnosis Discharge Date 12/24/22 Admitting Diagnosis pna, lung neoplasm DS: Discharge Diagnosis Discharge Diagnosis (1) COPD (chronic obstructive pulmonary disease): Code(s): J44.9 - Chronic obstructive pulmonary disease, unspecified Status: Acute Assessment and Plan: Continue treatment for COPD exacerbation and pneumonia. Continue IV antibiotics. 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 Transfer Discharge Sum: Med Medications Active and Home Medications: Home Medications cholecalciferol (vitamin D3) 25 mcg (1,000 unit) capsule 25 mcg PO DAILY 01/14/21 [History Confirmed 12/21/22] lisinopril 2.5 mg tablet 2.5 mg PO DAILY #90 tabs 11/22/22 [Rx Confirmed 12/21/22] apixaban 5 mg tablet (Eliquis) 5 mg PO BID 11/29/22 [History Confirmed 12/21/22] benzonatate 200 mg capsule 200 mg PO TID PRN cough #30 caps 11/29/22 [Rx Confirmed 12/21/22] levetiracetam 500 mg tablet (Keppra) 1,000 mg PO Q12H 11/29/22 [History Confirmed 12/21/22] mecobalamin (vitamin B12) 1,000 mcg chewable tablet 2,000 mcg PO DAILY 11/29/22 [History Confirmed 12/21/22] pantoprazole 40 mg tablet,delayed release 40 mg PO DAILY 11/29/22 [History Confirmed 12/21/22] ramelteon 8 mg tablet (Rozerem) 8 mg PO QHS 11/29/22 [History Confirmed 12/21/22] sertraline 50 mg tablet (Zoloft) 50 mg PO QHS 11/29/22 [History Confirmed 12/21/22] tiotropium bromide 2.5 mcg/actuation mist for inhalation (Spiriva Respimat) 2 puff inhalation DAILY 11/29/22 [History Confirmed 12/21/22] trazodone 100 mg tablet 100 mg PO QHS 11/29/22 [History Confirmed 12/21/22] vitamins A,C,R-vxeg-kvivib 2,148 mcg-113 mg-45 mg-17.4 mg tablet 1 tablet PO DAILY 11/29/22 [History Confirmed 12/21/22] albuterol sulfate 90 mcg/actuation aerosol inhaler 1 inh inhalation Q4H PRN shortness of breath or wheezing #6.7 grams 12/18/22 [Rx Confirmed 12/21/22] cetirizine 10 mg tablet (Zyrtec) 10 mg PO DAILY #90 tabs 12/22/22 [Rx] Transfer Discharge Sum: Hosp Hospital Course Hospital course: Aravind Coleman is a 72 year old male admitted for pna and has a lung neoplasm. Patient was transferred to [facility] Time Spent with Patient Time attestation: Total time spent providing and/or coordinating transfer services: Exam Narrative: Patient is comfortable, NAD HEENT: eyes are clear and none icteric LUNGS: bilateral fair air entry with wheezing and rhonchi HEART: RR S1S2 ABD: not distended Lower extremities: no edema SKIN: nonjaundiced Neuro: grossly intact.
== END 2022-12-24 06:35 | disposition short-term general hospital (02) | DRG 190 ==
LOC: ANHED 12-21 03:23 → ANH2MED 12-21 08:42 → ANHICU 12-22 15:15 → ANH2MED 12-27 12:37 → ANHICU 12-27 12:37
PROVIDERS: Emergency Medicine; Family Medicine; Internal Medicine Critical Care Medicine; Internal Medicine Pulmonary Disease; Admitting Provider Internal Medicine; Emergency Provider Physician Assistant; PCP Nurse Practitioner; Visit Provider Chiropractor
DX: J44.0 Chronic obstructive pulmonary disease with (acute) lower respiratory infection (principal); J18.9 Pneumonia, unspecified organism; C15.9 Malignant neoplasm of esophagus, unspecified; C78.01 Secondary malignant neoplasm of right lung; J44.1 Chronic obstructive pulmonary disease with (acute) exacerbation; R09.02 Hypoxemia; E78.5 Hyperlipidemia, unspecified; G62.9 Polyneuropathy, unspecified; Z20.822 Contact with and (suspected) exposure to COVID-19; Z85.841 Personal history of malignant neoplasm of brain; Z87.891 Personal history of nicotine dependence; Z86.16 Personal history of COVID-19; Z85.46 Personal history of malignant neoplasm of prostate
CPT/HCPCS: 36415; 36600; 71045; 71046; 71250; 80053; 80202; 81003; 82565; 82805; 82948; 83605; 83735; 83880; 84145; 85025; 85027; 85380; 85610; 85730; 86140; 87040; 87081; 87486; 87581; 87633; 87637; 93005; 93306; 94002; 94640; 94660; 96365; 96366; 96367; 96375; 99285; A9270; J0692; J0744; J1100; J1956; J2920; J3370; J7030; U0003